=== PATIENT | female | born 1950 | race Caucasian/White ===

== ENCOUNTER 2019-12-06 07:16 | Outpatient (REF) | payer MEDICARE, OTHER, SELFPAY | END 2019-12-06 07:17 | disposition home or self-care (01) | LOC: HO.LAB 07:16 | PROVIDERS: Visit Provider Internal Medicine | DX: Z20.828 Contact with and (suspected) exposure to other viral communicable diseases (principal) | CPT/HCPCS: 87635 ==

== ENCOUNTER 2020-01-08 10:27 | Outpatient (REF) | payer MEDICARE, OTHER, SELFPAY | END 2020-01-08 10:28 | disposition home or self-care (01) | LOC: HO.LAB 10:27 | PROVIDERS: Visit Provider Internal Medicine | DX: Z20.828 Contact with and (suspected) exposure to other viral communicable diseases (principal) | CPT/HCPCS: C9803; U0003 ==

== ENCOUNTER 2020-11-19 13:45 | Outpatient (REF) | payer MEDICARE, OTHER, SELFPAY | END 2020-11-19 13:46 | disposition home or self-care (01) | LOC: HO.LAB 13:45 | PROVIDERS: PCP Internal Medicine; Visit Provider Internal Medicine | DX: Z20.822 Contact with and (suspected) exposure to COVID-19 (principal) | CPT/HCPCS: C9803; U0003; U0005 ==

== ENCOUNTER 2021-05-19 07:55 | Day surgery (SDC) | payer MEDICARE, OTHER, SELFPAY ==
[2021-05-13 11:00] VITALS: BMI 30.9
--- NOTE | 2021-05-15 12:06 | MHC.SHP ---
Pre-Procedural Eval Section A Date of Service: 05/15/21 The patient is an INPATIENT: No Changes since office visit: No Cold of Flu in the past 2 weeks, No New Medical Problems, No Changes in Medication and No Patient answered all questions The History & Physical has been completed within 30 days and I have reviewed it.: Yes Section B Chief Complaint: cataract right eye Allergies: Allergies Allergy/AdvReac Type Severity Reaction Status Date / Time melon [MELON] Allergy Severe THROAT Unverified 05/13/21 10:46 ITCHING peanut [PEANUT] Allergy Intermediate NASAL Unverified 05/13/21 10:46 CONGESTION Plan Diagnosis/Plan: Unchanged I have reviewed the history and physical and performed a pertinent physical examination on my patient. No changes have occurred unless specified.
--- NOTE | 2021-05-16 09:02 | HO.ANESPROP2 ---
Documented by User: Sary Alvarado NP 05/16/21 09:13 HPI - Anesthesia Eval Consult details Narrative: 71yo F for Right Cataract Multifocal with IOL Insertion PCP cleared No previous cataract on record PMFSH Past Medical History Medical History (Updated 05/13/21 @ 10:45 by Becki Medeiros RN) GERD (gastroesophageal reflux disease) Hiatal hernia History of depression HTN (hypertension) Hx of bronchitis Hypothyroidism Surgical History Surgical History (Updated 05/13/21 @ 10:45 by Becki Medeiros RN) H/O cervical discectomy History of arthroscopy of right knee Hx of colonoscopy Hx of endoscopy Hx of hysterectomy Hx of left cataract extraction Social History Social History Are you a primary home visit field care manager to a significant other at home: No Do you presently have visiting nurse or other home services: No Patient Tobacco Use Status: Never used Tobacco Use of substances other than those prescribed or required for medical reasons: No Have you been hit, kicked, punched, or otherwise hurt by someone within the past year? If so, by whom?: No Are you DNR?: No Advance Directives: No Advance Directives Information Provided: No Advance Directives on File: No Recently lost weight without trying: No Eating poorly because of decreased appetite: No Nutrition Risks: No Nutritional Risk Patient : No Meds Allergies Allergy/AdvReac Type Severity Reaction Status Date / Time melon [MELON] Allergy Severe THROAT Unverified 05/13/21 10:46 ITCHING peanut [PEANUT] Allergy Intermediate NASAL Unverified 05/13/21 10:46 CONGESTION Home Medications Medication Instructions Recorded Confirmed Last Taken Type albuterol sulfate 90 mcg/actuation 2 puff PO Q4H PRN 04/02/21 04/02/21 Unknown History aerosol inhaler citalopram 10 mg tablet 0.5 - 1 tab PO DAILY 04/02/21 04/02/21 Unknown History clotrimazole-betamethasone 1 appl TOPICAL NEEDED 04/02/21 Unknown History %-0.05 % topical cream levothyroxine 125 mcg tablet 1 tab PO QAM 04/02/21 04/02/21 Unknown History lithium carbonate 300 mg capsule 2 cap PO BEDTIME 04/02/21 04/02/21 Unknown History simethicone 180 mg capsule 1 cap PO TID 04/02/21 04/02/21 Unknown History (Anti-Gas Ultra Strength) carica papaya (Papaya Enzyme) 1 tab PO TID 05/13/21 05/13/21 Unknown History cetirizine 10 mg capsule 10 mg PO DAILY 05/13/21 05/13/21 Unknown History coenzyme Q10 100 mg capsule 200 mg PO DAILY 05/13/21 05/13/21 Unknown History (CoQ-10) flaxseed oil 1,000 mg capsule 1,000 mg PO DAILY 05/13/21 05/13/21 Unknown History turmeric 400 mg capsule mg PO 05/13/21 Unknown History valsartan 80 mg tablet 1 tab PO BID 05/13/21 05/13/21 Unknown History vitamin B complex 1 cap PO DAILY 05/13/21 05/13/21 Unknown History Exam Exam Date and Time: May 16, [id number] Height,Weight and Vital Signs: Height 5 ft 2 in Weight 76.657 kg Narrative Narrative: Labs and EKG at PCP WNL Assessment and Plan Assessment Anesthesia Assessment: Chart Reviewed Documented by User: Spike Echevarria MD 05/19/21 09:35 [facility] Past Medical History Medical History (Updated 05/13/21 @ 10:45 by Becki Medeiros RN) GERD (gastroesophageal reflux disease) Hiatal hernia History of depression HTN (hypertension) Hx of bronchitis Hypothyroidism Family History Family history of problems with anesthesia: No Surgical History Surgical History (Updated 05/13/21 @ 10:45 by Becki Medeiros RN) H/O cervical discectomy History of arthroscopy of right knee Hx of colonoscopy Hx of endoscopy Hx of hysterectomy Hx of left cataract extraction History of Problems with Anesthesia: No Social History Social History Are you a primary home visit field care manager to a significant other at home: No Do you presently have visiting nurse or other home services: No Patient Tobacco Use Status: Never used Tobacco Use of substances other than those prescribed or required for medical reasons: No Have you been hit, kicked, punched, or otherwise hurt by someone within the past year? If so, by whom?: No Are you DNR?: No Advance Directives: No Advance Directives Information Provided: No Advance Directives on File: No Recently lost weight without trying: No Eating poorly because of decreased appetite: No Nutrition Risks: No Nutritional Risk Patient : No Meds Allergies Allergy/AdvReac Type Severity Reaction Status Date / Time melon [MELON] Allergy Severe THROAT Unverified 05/13/21 10:46 ITCHING peanut [PEANUT] Allergy Intermediate NASAL Unverified 05/13/21 10:46 CONGESTION Home Medications Medication Instructions Recorded Confirmed Last Taken Type albuterol sulfate 90 mcg/actuation 2 puff PO Q4H PRN 04/02/21 04/02/21 Unknown History aerosol inhaler citalopram 10 mg tablet 0.5 - 1 tab PO DAILY 04/02/21 04/02/21 Unknown History clotrimazole-betamethasone 1 appl TOPICAL NEEDED 04/02/21 Unknown History %-0.05 % topical cream levothyroxine 125 mcg tablet 1 tab PO QAM 04/02/21 04/02/21 Unknown History lithium carbonate 300 mg capsule 2 cap PO BEDTIME 04/02/21 04/02/21 Unknown History simethicone 180 mg capsule 1 cap PO TID 04/02/21 04/02/21 Unknown History (Anti-Gas Ultra Strength) carica papaya (Papaya Enzyme) 1 tab PO TID 05/13/21 05/13/21 Unknown History cetirizine 10 mg capsule 10 mg PO DAILY 05/13/21 05/13/21 Unknown History coenzyme Q10 100 mg capsule 200 mg PO DAILY 05/13/21 05/13/21 Unknown History (CoQ-10) flaxseed oil 1,000 mg capsule 1,000 mg PO DAILY 05/13/21 05/13/21 Unknown History turmeric 400 mg capsule mg PO 05/13/21 Unknown History valsartan 80 mg tablet 1 tab PO BID 05/13/21 05/13/21 Unknown History vitamin B complex 1 cap PO DAILY 05/13/21 05/13/21 Unknown History Exam Airway Mallampati Class: II TM Dist: >3cm Neck ROM: Full Loose/Missing/Broken Teeth: No Heart: rrr+s1s2 Lungs: cta b/l Assessment and Plan Assessment Anesthesia Assessment: Anesthesia Plan Discussed Final Anesthetic Review Family History of Problems with Anesthesia: No History of Problems with Anesthesia: No NPO: Yes ASA Class: III Final Preanesthetic Review: No Changes in Pt Med Stat, Meds/Allgs Chart Reviewed, Consent Obtained/Reviewed and Anes Risks/Benef Reviewed Patient Risk: Intermediate Procedure Risk: Low Assessment/Block/Sedation in SS: Assess/Block/Sedation-SS Anesthetic Plan Anesthetic Plan: MAC: and Agree w/ Assess. and Plan Disposition: Standard PACU
[2021-05-19 09:26] VITALS: BP 128/66; PULSE 65; RESP 16; TEMP 36.4; O2SAT 95
[2021-05-19] MEDS: Tetracaine HCl/PF 0.5% Oph Sol 4 ML DROPS 1 DROP EYE-RIGHT (09:41)
[2021-05-19] MEDS: Tropicamide 1 % Ophth Sol 3 ML BTL 1 DROP EYE-RIGHT ×3 (09:41→09:49)
[2021-05-19] MEDS: Lactated Ringers 500 ML 50 ML IV (09:41)
[2021-05-19] MEDS: Phenylephrine HCL 2.5% Oph SoL 2 ML BOTTLE 1 DROP EYE-RIGHT ×3 (09:44→09:52)
--- NOTE | 2021-05-19 10:29 | HO.PNOPHT ---
Ophthalmology Procedure Procedure Date of Service: 05/19/21 Ophthalmology Viscoelastic: Healserge Duet Dual Pack Pro Ophthalmology Lenses: TECNIS [id number] (21) Procedure Notes: PREOPERATIVE DIAGNOSIS: Decreased visual acuity right eye secondary to cataract POSTOPERATIVE DIAGNOSIS: Same PROCEDURE: Right cataract extraction with toric multifocal intraocular lens insertion axis 88 SURGEON: Willy Avelar M.D. ANESTHESIA: Topical/MAC ESTIMATED BLOOD LOSS: None COMPLICATIONS: None After obtaining informed consent, the patient was brought to the operating room suite and placed in the supine position. After adequate sedation per anesthesia, topical drops of Tetracaine were given to the right eye. The eye was then prepped and draped in the usual sterile fashion. The operating room microscope was then positioned over the operative eye and a lid speculum placed. A paracentesis was created. Viscoelastic was then instilled into the anterior chamber. A three plane incision was then created temporally, utilizing a 2.85 mm keratome. Capsulotomy forceps were then utilized to create a circular tear capsulotomy. Hydrodissection and hydrodelineation were carried out until adequate mobilization of the nucleus occurred. Phacoemulsification was then utilized to remove the dense central nucleus followed by removal of the cortical material utilizing the automated aspiration irrigation unit. Viscoelastic was instilled into the posterior capsular bag followed by placement of a toric multifocal posterior chamber intraocular lens axis 88 without difficulty. The residual Viscoelastic was then removed utilizing the automated IA machine. The wound was checked and found to be watertight. The patient tolerated the procedure well and the lid speculum was removed. Intracameral injection of Vigamox 0.1 mL followed by a subtenon injection of Kenalog-40 0.2 mL were administered. The patient will be seen in the a.m.
[2021-05-19 10:53] VITALS: BP 141/76; PULSE 64; RESP 18; TEMP 36.4; O2SAT 96
== END 2021-05-19 11:06 | disposition home or self-care (01) ==
PROVIDERS: PCP Internal Medicine; Visit Provider Ophthalmology
PROC: (CPT 66984; principal; 2021-05-19 10:40)
DX: H25.11 Age-related nuclear cataract, right eye (principal); I10 Essential (primary) hypertension; E03.9 Hypothyroidism, unspecified; J45.20 Mild intermittent asthma, uncomplicated; Z79.899 Other long term (current) drug therapy
CPT/HCPCS: 66984; J2250; J3010; J3300; V2788

== ENCOUNTER 2021-09-19 13:20 | Outpatient (REF) | payer MEDICARE, OTHER, SELFPAY ==
--- NOTE | ~2021-09-19 | MR_ITS ---
EXAMINATION: MR BRAIN WITHOUT CONTRAST CLINICAL INFORMATION: Cerebral infarction. Aphasia. COMPARISON: None available. TECHNIQUE: Multiplanar, multisequence imaging of the brain was performed without intravenous contrast. FINDINGS: There is no intracranial hemorrhage, extra-axial collection, mass effect, or territorial infarction. There is chronic infarct within the left insula. Chronic lacunar infarcts are seen within the bilateral basal ganglia and bilateral thalami. Mild patchy T2/FLAIR hyperintensity seen within the cerebral white matter, most typical of chronic microangiopathy. The ventricles are normal in size without hydrocephalus. The major arterial flow voids are preserved at the skull base. There are bilateral lens replacements. A small amount of mastoid fluid is seen on the right. MR/MR head/brain wo con IMPRESSION: No acute intracranial abnormality. No mass. Chronic infarct in the left insula. Chronic lacunar infarcts in the bilateral basal ganglia and thalami with background changes of chronic microangiopathy also demonstrated.
== END 2021-09-19 13:21 | disposition home or self-care (01) ==
LOC: HO.MRI 13:20
PROVIDERS: Visit Provider Psychiatry & Neurology Neurology
DX: I63.9 Cerebral infarction, unspecified (principal); R74.01 Elevation of levels of liver transaminase levels
CPT/HCPCS: 70551

== ENCOUNTER 2021-11-24 09:39 | Day surgery (SDC) | payer MEDICARE, OTHER, SELFPAY ==
[2021-11-18 13:53] VITALS: BMI 27.8
[2021-11-18 14:04] VITALS: BMI 27.8
--- NOTE | 2021-11-20 15:32 | MHC.SHP ---
Pre-Procedural Eval Section A Date of Service: 11/20/21 The patient is an INPATIENT: No Changes since office visit: No Cold of Flu in the past 2 weeks, No New Medical Problems, No Changes in Medication and No Patient answered all questions The History & Physical has been completed within 30 days and I have reviewed it.: Yes Section B Chief Complaint: Other specified complication of other internal pro Allergies: Allergies Allergy/AdvReac Type Severity Reaction Status Date / Time melon [MELON] Allergy Severe THROAT Verified 05/19/21 09:41 ITCHING peanut [PEANUT] Allergy Intermediate NASAL Verified 05/19/21 09:41 CONGESTION Plan Diagnosis/Plan: Unchanged I have reviewed the history and physical and performed a pertinent physical examination on my patient. No changes have occurred unless specified.
--- NOTE | 2021-11-21 08:57 | P.CONAN_ITS ---
Documented by User: Sary Alvarado NP 11/21/21 09:00 HPI - Anesthesia Eval Consult details Narrative: 71yo F for Right Cataract Extraction IOL Insertion, reposition on lens PCP cleared Original done 05/2021 with MAC: Fent 50, Midaz 1 PMFSH Past Medical History Medical History Bipolar disorder CVA (cerebral vascular accident) GERD (gastroesophageal reflux disease) Hiatal hernia History of depression HTN (hypertension) Hx of bronchitis Hypothyroidism Family History Family history of problems with anesthesia: No Surgical History Surgical History H/O cervical discectomy History of arthroscopy of right knee History of loop recorder Hx of colonoscopy Hx of endoscopy Hx of hysterectomy Hx of left cataract extraction Hx of right cataract extraction History of Problems with Anesthesia: No Social History Social History Are you a primary health care facility administrator to a significant other at home: No Do you presently have visiting nurse or other home services: No Patient Tobacco Use Status: Never used Tobacco Use of substances other than those prescribed or required for medical reasons: No Are you DNR?: No Advance Directives: No Advance Directives Information Provided: Yes (brochure mailed) Advance Directives on File: No Recently lost weight without trying: No Eating poorly because of decreased appetite: No Nutrition Risks: No Nutritional Risk Meds Allergies Allergy/AdvReac Type Severity Reaction Status Date / Time melon [MELON] Allergy Severe THROAT Verified 11/24/21 11:26 ITCHING peanut [PEANUT] Allergy Intermediate NASAL Verified 11/24/21 11:26 CONGESTION Home Medications Medication Instructions Recorded Confirmed Last Taken Type albuterol sulfate 90 mcg/actuation 2 puff PO Q4H PRN wheezing 04/02/21 04/02/21 Unknown History aerosol inhaler citalopram 10 mg tablet 0.5 - 1 tab PO BEDTIME 04/02/21 11/18/21 Unknown History clotrimazole-betamethasone 1 appl topical NEEDED 04/02/21 Unknown History %-0.05 % topical cream lithium carbonate 300 mg capsule 150 mg PO BEDTIME 04/02/21 11/18/21 Unknown History simethicone 180 mg capsule 1 cap PO TID 04/02/21 11/18/21 Unknown History (Anti-Gas Ultra Strength) carica papaya (Papaya Enzyme 1 tab PO TID 05/13/21 05/13/21 Unknown History tablet) cetirizine 10 mg capsule 10 mg PO DAILY 05/13/21 11/18/21 Unknown History coenzyme Q10 100 mg capsule 200 mg PO DAILY 05/13/21 11/18/21 Unknown History (CoQ-10) flaxseed oil 1,000 mg capsule 1,000 mg PO DAILY 05/13/21 11/18/21 Unknown History turmeric 400 mg capsule 400 mg PO DAILY 05/13/21 11/18/21 Unknown History valsartan 80 mg tablet 1 tab PO BID 05/13/21 11/18/21 Unknown History vitamin B complex 1 cap PO DAILY 05/13/21 11/18/21 Unknown History aspirin 81 mg tablet,delayed 1 tab PO DAILY 11/18/21 11/18/21 Unknown History release atorvastatin 80 mg tablet 1 tab PO DAILY 11/18/21 11/18/21 Unknown History levothyroxine 100 mcg tablet 1 tab PO QAM 11/18/21 11/18/21 11/24/21 06:30 History Exam Exam Date and Time: November 21, 2021 0857 Height,Weight and Vital Signs: Height 5 ft 2 in Weight 68.946 kg Assessment and Plan Assessment Anesthesia Assessment: Chart Reviewed Final Anesthetic Review Family History of Problems with Anesthesia: No History of Problems with Anesthesia: No Documented by User: Spike Echevarria MD 11/24/21 12:02 [facility] Past Medical History Medical History Bipolar disorder CVA (cerebral vascular accident) GERD (gastroesophageal reflux disease) Hiatal hernia History of depression HTN (hypertension) Hx of bronchitis Hypothyroidism Surgical History Surgical History H/O cervical discectomy History of arthroscopy of right knee History of loop recorder Hx of colonoscopy Hx of endoscopy Hx of hysterectomy Hx of left cataract extraction Hx of right cataract extraction Social History Social History Are you a primary health care facility administrator to a significant other at home: No Do you presently have visiting nurse or other home services: No Patient Tobacco Use Status: Never used Tobacco Use of substances other than those prescribed or required for medical reasons: No Are you DNR?: No Advance Directives: No Advance Directives Information Provided: Yes (brochure mailed) Advance Directives on File: No Recently lost weight without trying: No Eating poorly because of decreased appetite: No Nutrition Risks: No Nutritional Risk Meds Allergies Allergy/AdvReac Type Severity Reaction Status Date / Time melon [MELON] Allergy Severe THROAT Verified 11/24/21 11:26 ITCHING peanut [PEANUT] Allergy Intermediate NASAL Verified 11/24/21 11:26 CONGESTION Home Medications Medication Instructions Recorded Confirmed Last Taken Type albuterol sulfate 90 mcg/actuation 2 puff PO Q4H PRN wheezing 04/02/21 04/02/21 Unknown History aerosol inhaler citalopram 10 mg tablet 0.5 - 1 tab PO BEDTIME 04/02/21 11/18/21 Unknown History clotrimazole-betamethasone 1 appl topical NEEDED 04/02/21 Unknown History %-0.05 % topical cream lithium carbonate 300 mg capsule 150 mg PO BEDTIME 04/02/21 11/18/21 Unknown History simethicone 180 mg capsule 1 cap PO TID 04/02/21 11/18/21 Unknown History (Anti-Gas Ultra Strength) carica papaya (Papaya Enzyme 1 tab PO TID 05/13/21 05/13/21 Unknown History tablet) cetirizine 10 mg capsule 10 mg PO DAILY 05/13/21 11/18/21 Unknown History coenzyme Q10 100 mg capsule 200 mg PO DAILY 05/13/21 11/18/21 Unknown History (CoQ-10) flaxseed oil 1,000 mg capsule 1,000 mg PO DAILY 05/13/21 11/18/21 Unknown History turmeric 400 mg capsule 400 mg PO DAILY 05/13/21 11/18/21 Unknown History valsartan 80 mg tablet 1 tab PO BID 05/13/21 11/18/21 Unknown History vitamin B complex 1 cap PO DAILY 05/13/21 11/18/21 Unknown History aspirin 81 mg tablet,delayed 1 tab PO DAILY 11/18/21 11/18/21 Unknown History release atorvastatin 80 mg tablet 1 tab PO DAILY 11/18/21 11/18/21 Unknown History levothyroxine 100 mcg tablet 1 tab PO QAM 11/18/21 11/18/21 11/24/21 06:30 History Exam Airway Mallampati Class: II TM Dist: >3cm Neck ROM: Full Loose/Missing/Broken Teeth: No Heart: rrr+s1s2 Lungs: cta b/l Assessment and Plan Assessment Anesthesia Assessment: Anesthesia Plan Discussed Final Anesthetic Review NPO: Yes ASA Class: III Final Preanesthetic Review: No Changes in Pt Med Stat, Meds/Allgs Chart Reviewed, Consent Obtained/Reviewed and Anes Risks/Benef Reviewed Patient Risk: Intermediate Procedure Risk: Low Assessment/Block/Sedation in SS: Assess/Block/Sedation-SS Anesthetic Plan Anesthetic Plan: MAC: and Agree w/ Assess. and Plan Disposition: Standard PACU
[2021-11-24 11:42] VITALS: BP 168/76; PULSE 59; RESP 16; TEMP 36.2; O2SAT 98
[2021-11-24] MEDS: Tetracaine HCl/PF 0.5% Oph Sol 4 ML DROPS 1 DROP EYE-LEFT (11:47)
[2021-11-24] MEDS: Cyclopentolate 1 % Ophth Sol 2 ML DRPBTL 1 DROP EYE-LEFT ×3 (11:50→12:05)
[2021-11-24] MEDS: Tropicamide 1 % Ophth Sol 3 ML BTL 1 DROP EYE-LEFT ×3 (11:52→12:06)
[2021-11-24] MEDS: Ketorolac Tromethamine 0.5% Op 5 ML DROPS 1 DROP EYE-LEFT ×3 (11:53→12:07)
[2021-11-24] MEDS: Phenylephrine HCL 2.5% Oph SoL 2 ML BOTTLE 1 DROP EYE-LEFT ×3 (11:56→12:08)
[2021-11-24] MEDS: Lactated Ringers 500 ML 50 ML IV (12:06)
[2021-11-24 14:13] VITALS: BP 138/66; PULSE 69; RESP 16; TEMP 36.2; O2SAT 97
--- NOTE | 2021-11-25 00:37 | OP_ITS ---
SURGEON: Willy Avelar MD PREOPERATIVE DIAGNOSIS: POSTOPERATIVE DIAGNOSIS: Malpositioning of the posterior chamber intraocular lens of the right eye. PROCEDURE PERFORMED: Repositioning of the posterior chamber intraocular lens. ESTIMATED BLOOD LOSS: COMPLICATIONS: ANESTHESIA: Local with MAC. ASSISTANTS: SPECIMENS: INDICATIONS FOR SURGERY: Malpositioning of the posterior chamber intraocular lens of the right eye. DESCRIPTION OF PROCEDURE: After obtaining informed consent, the patient was brought to the operating room suite and placed in the supine position. After adequate sedation, the right eye was prepped and draped in the usual sterile fashion. A lid speculum was placed in the right eye followed by positioning of the microscope over the right eye. A 15-degree Supersharp blade was utilized to create a paracentesis. Kenalog injection of 0.15 mL was given sub-Tenon to the right eye. A keratome was then used to create a clear corneal incision. Viscoelastic was instilled into the anterior chamber. Viscoelastic was also instilled into the posterior capsular bag paying attention to the haptics until they rotated freely. Once the haptics rotated freely, the IOL was repositioned at 88 degrees. The viscoelastic was removed and the patient tolerated the procedure well. Topical drop of antibiotic was given and the lid speculum was removed and the patient will be seen in followup tomorrow. MD LINDA Asher/MODL / [id number]
== END 2021-11-24 14:21 | disposition home or self-care (01) ==
PROVIDERS: Visit Provider Ophthalmology
PROC: (CPT 66825; principal; 2021-11-24 12:40)
DX: T85.22XA Displacement of intraocular lens, initial encounter (principal); H53.8 Other visual disturbances; V00-Y99 External causes of morbidity; Z83.511 Family history of glaucoma; Z96.1 Presence of intraocular lens; E03.9 Hypothyroidism, unspecified; I10 Essential (primary) hypertension; F32.A Depression, unspecified; I69.398 Other sequelae of cerebral infarction; R20.2 Paresthesia of skin; Z87.891 Personal history of nicotine dependence; Z79.899 Other long term (current) drug therapy
CPT/HCPCS: 66825; J2250; J3300

== ENCOUNTER 2022-07-01 10:13 | Emergency (ER) | payer MEDICARE, OTHER, SELFPAY ==
--- NOTE | ~2022-07-01 | CT_ITS ---
EXAMINATION: CT HEAD WITHOUT CONTRAST CLINICAL INFORMATION: Vision changes COMPARISON: MRI brain 09/19/2021. TECHNIQUE: Contiguous axial imaging was performed from the skull base to vertex without intravenous administration of contrast. This CT examination was performed using dose optimization techniques as appropriate, variously including the following: *Automated exposure control *Adjustment of mA and/or kV according to patient size (this includes techniques or standardized protocols for targeted exams where dose is matched to indication/reason for exam; i.e. extremities or head) *Use of iterative reconstruction technique DLP: 590 mGy-cm FINDINGS: There is no acute intra-axial, extra-axial bleed, masses or midline shift. There is no acute infarction in evolution. 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 There is no edema. The lateral ventricles are symmetrical but mildly enlarged. The cruz to white matter differentiation is preserved. Bone windows reveal no calvarial abnormality. There is no scalp soft tissue abnormality. Bilateral paranasal sinuses and mastoid air cells are well-aerated. CT/CT head/brain wo IV con IMPRESSION: 1. No acute intracranial process seen. 2. 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 3. Mild cerebral volume loss.
[2022-07-01 10:22] VITALS: BP 147/76; PULSE 71; RESP 18; TEMP 36.4; O2SAT 96; BMI 27.7
[2022-07-01 10:27] VITALS: BP 147/76; PULSE 71; RESP 18; TEMP 36.4; O2SAT 96
--- NOTE | 2022-07-01 10:36 | PC.NURSE ---
Alert and oriented. Drove herself to Er from home after she experienced 3 beams of light behind her eye yesterday morning (unsure which eye) states it may have last for a few minutes but is unsure. States she had x1 episode of urinary incontinence yesterday. is a diabetic and has experienced visual changes over the last tear. Traveled to [place] about a month ago and had a fall while there. since fall she has had left sided lower extremity pain and had fluid removed and a cortisone shot in her left knee yesterday. had a stroke in May 30 2021 and had some left sided deficits after tge stroke. No chest pain or sob, perrla, hand grasps strong and equal. Able to lift both legs. Reports no headache or current visual disturbances. VSS. NSR on monitor.
--- NOTE | 2022-07-01 10:36 | ED.EYEPROB ---
HPI - Eye Problem General Chief complaint: Eye Problems Stated complaint: Stroke Like Symptoms Time Seen by Provider: 07/01/22 10:26 Source: patient Mode of arrival: ambulatory Limitations: no limitations History of Present Illness HPI Narrative: 72 y/o female with history of CVA, HTN, hypothyroidism, history of bilateral cataract surgeries in the past who presents ot the ER for evaluation of recurrent transient flashes of light in her eye over the last week, last episode was yesterday morning. She states the flashes last seconds and it looks like a sheet with holes in it and a light shining through. No associated eye pain, headache, weakness, numbness, tingling. She states it has happened a few times this week, she cannot recall which eye it has occurred in. She has no current symptoms. MD chief complaint: vision change Onset (ago): week(s) Onset description: sudden Duration: intermittent Eye Symptoms: other (flashing lights) Place: home Mechanism: none Severity: moderate Treatments Prior to Arrival: none Related Data Patient tetanus UTD: Yes Home Medications Medication Instructions Recorded Confirmed albuterol sulfate 90 mcg/actuation 2 puff PO Q4H PRN wheezing 04/02/21 04/02/21 aerosol inhaler citalopram 10 mg tablet 0.5 - 1 tab PO BEDTIME 04/02/21 11/18/21 clotrimazole-betamethasone 1 appl topical NEEDED 04/02/21 %-0.05 % topical cream lithium carbonate 300 mg capsule 150 mg PO BEDTIME 04/02/21 11/18/21 simethicone 180 mg capsule 1 cap PO TID 04/02/21 11/18/21 (Anti-Gas Ultra Strength) carica papaya (Papaya Enzyme 1 tab PO TID 05/13/21 05/13/21 tablet) cetirizine 10 mg capsule 10 mg PO DAILY 05/13/21 11/18/21 coenzyme Q10 100 mg capsule 200 mg PO DAILY 05/13/21 11/18/21 (CoQ-10) flaxseed oil 1,000 mg capsule 1,000 mg PO DAILY 05/13/21 11/18/21 turmeric 400 mg capsule 400 mg PO DAILY 05/13/21 11/18/21 valsartan 80 mg tablet 1 tab PO BID 05/13/21 11/18/21 vitamin B complex 1 cap PO DAILY 05/13/21 11/18/21 aspirin 81 mg tablet,delayed 1 tab PO DAILY 11/18/21 11/18/21 release atorvastatin 80 mg tablet 1 tab PO DAILY 11/18/21 11/18/21 levothyroxine 100 mcg tablet 1 tab PO QAM 11/18/21 11/18/21 Allergies Allergy/AdvReac Type Severity Reaction Status Date / Time melon [MELON] Allergy Severe THROAT Verified 11/24/21 11:26 ITCHING peanut [PEANUT] Allergy Intermediate NASAL Verified 11/24/21 11:26 CONGESTION Review of Systems Review of Systems: Yes all other systems are reviewed and are negative PMFSH Past Medical History Medical History Bipolar disorder CVA (cerebral vascular accident) GERD (gastroesophageal reflux disease) Hiatal hernia History of depression HTN (hypertension) Hx of bronchitis Hypothyroidism Surgical History H/O cervical discectomy History of arthroscopy of right knee History of loop recorder Hx of colonoscopy Hx of endoscopy Hx of hysterectomy Hx of left cataract extraction Hx of right cataract extraction Social History Social History Are you a primary toddler caregiver to a significant other at home: No Do you presently have visiting nurse or other home services: No Alcohol intake: current Alcohol intake frequency: a few times a month Patient Tobacco Use Status: Never used Tobacco Smoked in Last 30 Days: No Substance Use Type Other:: SUPPLEMENTS, VITAMINS Advance Directives: No Advance Directives Information Provided: Yes Physical Exam Vital Signs: Vital Signs: Last Vital Signs Temp 97.6 F 07/01/22 10:27 Pulse 71 07/01/22 10:27 Resp 18 07/01/22 10:27 BP 147/76 H 07/01/22 10:27 Pulse Ox 96 07/01/22 10:27 O2 Del Method Room Air 07/01/22 10:27 BMI result Body Mass Index 27.7 Appearance: Alert. Oriented X3. No acute distress. Head: normocephalic, atraumatic. Eyes: Pupils equal, round and reactive to light. EOMI, no nystagmus. no injection, no discharge. IOP 15 bilaterally ENT: Pharynx normal. No tonsillar swelling or exudate. Neck: Normal inspection. Neck supple. CVS: Normal heart rate and rhythm. Pulses normal. Respiratory: No respiratory distress. Breath sounds normal. Abdomen: Soft and nontender. +BS x4 Skin: Skin warm and dry. Normal skin color. Normal skin turgor. No rashes. Extremities: No lower extremity edema. No joint swelling. Neuro/psych: Oriented X 3. No motor deficit. No sensory deficit. CN II-XII intact. Normal speech and cognition. Steady gait Course Reevaluation(s) Reevaluation #1: No vision issues while in the ER. Patient comfortably reading her book. Intra-ocular pressures are 15 bilaterally. Time: 11:41 Medications Administered Discontinued Medications Generic Name Dose Route Start Last Admin Trade Name Freq PRN Reason Stop Dose Admin Tetracaine HCl 1 drop 07/01/22 10:36 07/01/22 11:28 Tetracaine Hcl/Pf 0.5% Oph Jer[place] 4 Ml Drops EYE-BOTH 07/01/22 10:37 1 drop ONCE ONE Administration Medical Decision Making Medical Decision Making [facility] Narrative: 72 yo female with history of stroke, history of bilateral cataract surgeries in the past presenting with vision changes described as flashing lights that are transient and not associated with any other symptoms. IOP 15. CT head showing old stroke, Neurologically intact. No symptoms while here, reading her book. She is on aspirin. Case d/w Dr Avelar who is recommending follow up in the office. results and plan d/w patient - stablke for d/c home. Differential Diagnosis Differential Diagnoses: The differential diagnosis associated with the presentation includes lens displacement, optic nerve damage, optic neuritis, detached retina, posterior vitrious detachment, migraine headache Admission/Observation Consideration of admission/observation: Escalation of care including admission/observation considered Consult Healthcare Provider Management of the patient was discussed with: [place] Operator Dr. Avelar Lab Data [facility] Lab Attestation statement: I reviewed the patient's lab results. 07/01/22 11:24 07/01/22 11:24 Labs: Lab Results 07/01/22 07/01/22 07/01/22 Range/Units 11:24 11:57 11:57 WBC 13.2 H (4.8-10.8) X10*3/uL RBC 4.80 (4.20-5.50) X10*6/uL Hgb 14.2 (12.0-16.0) g/dl Hct 42.7 (37.0-47.0) % MCV 89.0 (80.0-98.0) fL MCH 29.6 (27.0-33.0) pg MCHC 33.3 (31.0-35.0) g/dl RDW 14.6 (11.0-16.0) % Plt Count 374 (160-400) X10*3/uL MPV 10.1 (9.4-12.3) fL Immature Gran % (Auto) 0.5 H (0.0-0.4) % Neut % (Auto) 87.2 H (45-73) % Lymph % (Auto) 7.5 L (20-40) % [place] % (Auto) 4.6 (2-11) % Eos % (Auto) 0.0 (0-4) % Baso % (Auto) 0.2 (0-2) % Lymph # (Auto) 1.0 L (1.2-4.9) X10*3/uL [place] # (Auto) 0.6 (0.1-1.2) X10*3/uL Eos # (Auto) 0.0 (0.0-0.4) X10*3/uL Baso # (Auto) 0.0 (0.0-0.2) X10*3/uL Abs Immat Gran (auto) 0.06 H (0.00-0.03) X10*3/uL Absolute Neuts (auto) 11.5 H (2.0-8.3) x10*3/uL Absolute Nucleated RBC 0.000 (0.0-0.012) X10*3/uL Nucleated RBC % (auto) 0.0 (0.0-0.2) /100WBC PT 10.4 (10.0-13.1) SEC INR 0.9 (0.9-1.1) APTT 29.6 (26.0-36.4) SEC Sodium 145 (135-145) mmol/L Potassium 4.8 (3.3-5.1) mmol/L Chloride 109 H (96-108) mmol/L Carbon Dioxide 28 (22-29) mmol/L Anion Gap 13 (12-20) BUN 21 H (9-16) mg/dL Creatinine 0.72 (0.5-1.4) mg/dL Estim Creat Clear Calc 63.2 Estimated GFR > 60 Random Glucose 108 (60-115) mg/dL Calcium 10.2 (8.4-10.2) mg/dL Magnesium 2.4 (1.6-2.6) mg/dL Total Bilirubin 0.5 (0.0-1.0) mg/dL Direct Bilirubin 0.1 (0.0-0.5) mg/dL AST 19 (5-31) U/L ALT 23 (0-31) U/L Alkaline Phosphatase 66 (39-117) U/L Total Protein 7.0 (6.5-8.0) g/dL Albumin 4.3 (3.5-5.0) g/dL Independent Interpretation I performed an independent interpretation of an: CT Scan Interpretation: no acute bleed or stroke Radiology Impression Discussion of test interpretation with radiology: I have reviewed the radiologist's reading. Radiologist Impression: EXAMINATION: CT HEAD WITHOUT CONTRAST CLINICAL INFORMATION: Vision changes? COMPARISON: MRI brain 09/19/2021. TECHNIQUE: Contiguous axial imaging was performed from the skull base to vertex without intravenous administration of contrast. This CT examination was performed using dose optimization techniques as appropriate, variously including the following: *Automated exposure control *Adjustment of mA and/or kV according to patient size (this includes techniques or standardized protocols for targeted exams where dose is matched to indication/reason for exam; i.e. extremities or head) *Use of iterative reconstruction technique DLP: 590 mGy-cm FINDINGS: There is no acute intra-axial, extra-axial bleed, masses or midline shift. There is no acute infarction in evolution. 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 There is no edema. The lateral ventricles are symmetrical but mildly enlarged. The cruz to white matter differentiation is preserved. Bone windows reveal no calvarial abnormality. There is no scalp soft tissue abnormality. Bilateral paranasal sinuses and mastoid air cells are well-aerated. ? CT/CT head/brain wo IV con IMPRESSION: 1.? No acute intracranial process seen. 2.? 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 3.? Mild cerebral volume loss. External Record Review External record reviewed: Office record and Outpatient record Chronic Conditions Patient?s care impacted by: Hypertension Critical Care Time Critical Care Time Critical Care Time: No Discharge Plan Discharge Clinical Impression: Flashing lights Patient Disposition: Home, Self-Care Instructions: Blurred Vision (ED) Additional Instructions: your CT scan did not show any acute changes follow up with Dr. Avelar If you develop new or worsening symptoms call 911 or come back to the ER for further evaluation. Prescriptions: No Action simethicone [Anti-Gas Ultra Strength] 180 mg capsule 1 cap PO TID citalopram 10 mg tablet 0.5 - 1 tab PO BEDTIME lithium carbonate 300 mg capsule 150 mg PO BEDTIME clotrimazole-betamethasone 1-0.05 % cream topical NEEDED albuterol sulfate 90 mcg/actuation HFA aerosol inhaler 2 puff PO Q4H PRN (Reason: wheezing) carica papaya [Papaya Enzyme] Tablet 1 tab PO TID Rx Instructions: administer with meals valsartan 80 mg tablet 1 tab PO BID flaxseed oil 1,000 mg Capsule 1,000 mg PO DAILY Rx Instructions: administer with a meal vitamin B complex [B Complex] Capsule 1 cap PO DAILY coenzyme Q10 [CoQ-10] 100 mg Capsule 200 mg PO DAILY cetirizine 10 mg Capsule 10 mg PO DAILY turmeric 400 mg Capsule 400 mg PO DAILY atorvastatin 80 mg tablet 1 tab PO DAILY aspirin 81 mg tablet,delayed release (DR/EC) 1 tab PO DAILY levothyroxine 100 mcg tablet 1 tab PO QAM Referrals: Willy Avelar [Physician] - Interventions: ED Discharge Assessment Last Done: 07/01/22 14:16 Discharge Date/Time: 07/01/22 14:16
[2022-07-01] MEDS: Tetracaine HCl/PF 0.5% Oph Sol 4 ML DROPS 1 DROP EYE-BOTH (11:28)
[2022-07-01 11:38] LABS: MANUAL DIFF FLAG NO
[2022-07-01 11:42] LABS: Basophils Percent Auto 0.2 % (0-2); Hematocrit 42.7 % (37.0-47.0); Hemoglobin 14.2 g/dl (12.0-16.0); Imm Gran Abs Auto 0.06 X10*3/uL (0.00-0.03); Imm Gran Pct Auto 0.5 % (0.0-0.4); Lymphocytes Percent Auto 7.5 % (20-40); Mean Corpuscular HGB Conc 33.3 g/dl (31.0-35.0); Mean Corpuscular Hemoglobin 29.6 pg (27.0-33.0); Mean Platelet Volume 10.1 fL (9.4-12.3); Monocytes Absolute Auto 0.6 X10*3/uL (0.1-1.2); Monocytes Percent Auto 4.6 % (2-11); Neutrophils Absolute Auto 11.5 x10*3/uL (2.0-8.3); Neutrophils Percent Auto 87.2 % (45-73); Platelet Count 374 X10*3/uL (160-400); Red Cell Distribution Width 14.6 % (11.0-16.0); White Blood Count 13.2 X10*3/uL (4.8-10.8)
[2022-07-01 12:07] LABS: INTERNATIONAL NORM RATIO 0.9 (0.9-1.1); Prothrombin Time 10.4 SEC (10.0-13.1)
[2022-07-01 12:10] LABS: Partial Thromboplastin Time 29.6 SEC (26.0-36.4)
[2022-07-01 12:19] LABS: Alanine Aminotransferase 23 U/L (0-31); Albumin Level 4.3 g/dL (3.5-5.0); Alkaline Phosphatase 66 U/L (39-117); Anion Gap 13 (12-20); Aspartate Amino Transferase 19 U/L (5-31); Bilirubin Direct 0.1 mg/dL (0.0-0.5); Bilirubin Total 0.5 mg/dL (0.0-1.0); Blood Urea Nitrogen 21 mg/dL (9-16); Calcium 10.2 mg/dL (8.4-10.2); Carbon Dioxide 28 mmol/L (22-29); Chloride 109 mmol/L (96-108); Creatinine Clr Calc Pharmacy 63.2; Estimated Glomerular Filt Rate > 60; Glucose Random 108 mg/dL (60-115); Magnesium 2.4 mg/dL (1.6-2.6); Potassium 4.8 mmol/L (3.3-5.1); Sodium 145 mmol/L (135-145)
--- NOTE | 2022-07-01 14:17 | PC.NURSE ---
Alert and oriented. Reviewed discharge instruction and patient verbalized understanding to follow up with eye
== END 2022-07-01 14:16 | disposition home or self-care (01) ==
PROVIDERS: Physician Assistant; Emergency Provider Emergency Medicine Emergency Medical Services; PCP Internal Medicine
DX: H53.8 Other visual disturbances (principal); I10 Essential (primary) hypertension; Z86.73 Personal history of transient ischemic attack (TIA), and cerebral infarction without residual deficits; Z79.899 Other long term (current) drug therapy; E03.9 Hypothyroidism, unspecified
CPT/HCPCS: 36415; 70450; 80048; 80076; 83735; 85025; 85610; 85730; 99284

== ENCOUNTER 2022-09-19 17:47 | Inpatient (IN) | payer MEDICARE, OTHER, SELFPAY ==
[2022-09-19] VITALS (15 sets, daily range): BP systolic 121–154; BP diastolic 67–85; PULSE 81–91; RESP 12–22; TEMP 36.5–37.6; O2SAT 93–98; BMI 25.8; BMI 25.6
--- NOTE | ~2022-09-19 | CT_ITS ---
EXAMINATION: CT HEAD WITHOUT CONTRAST CLINICAL INFORMATION: Left-sided weakness. COMPARISON: CT head 07/01/2022. TECHNIQUE: Contiguous axial imaging was performed from the skull base to vertex without intravenous administration of contrast. This CT examination was performed using dose optimization techniques as appropriate, variously including the following: *Automated exposure control *Adjustment of mA and/or kV according to patient size (this includes techniques or standardized protocols for targeted exams where dose is matched to indication/reason for exam; i.e. extremities or head) *Use of iterative reconstruction technique DLP: 631 mGy-cm FINDINGS: Chronic encephalomalacia/gliosis in the left insular region. Multiple chronic bilateral lacunar infarcts. There is no evidence of acute intracranial hemorrhage or edematous territorial infarction. Scattered hypoattenuation in the periventricular and deep white matter are consistent with moderate microangiopathy. Edouard-white matter differentiation is preserved. Proportional prominence of the ventricles and sulcal spaces. No evidence for obstructive hydrocephalus. No abnormal mass effect or midline shift. No extra-axial fluid collections. No acute soft tissue or osseous abnormalities. The mastoid air cells and paranasal sinuses are clear. CT/CT head for stroke IMPRESSION: 1. No evidence of acute intracranial hemorrhage or edematous territorial infarction. 2. 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
--- NOTE | ~2022-09-19 | MR_ITS ---
MRI OF THE BRAIN WITHOUT IV CONTRAST INDICATION: Stroke. COMPARISON: CTA head and neck September 19, 2022. TECHNIQUE: Multiplanar multisequence MR imaging of the brain was obtained without IV contrast. FINDINGS: There is a acute infarct within the right SUPERVISOR SANDING territory involving a significant portion of the right occipital lobe as well as portions of the mesial right temporal lobe and the right thalamus. Cytotoxic edema results in local cerebral sulcal effacement without midline shift. There is no hemorrhagic transformation. There is chronic microangiopathy and there is a chronic left MCA territory infarct. There is no hydrocephalus, extra-axial surface collection, or herniation. The major flow voids at the skull base are preserved. There is no intracranial hemorrhage on the gradient recalled echo acquisition. The midline structures are normal. The cerebellar tonsils are normally positioned. The cerebellum and brainstem are normal. The craniocervical junction is normal. Osseous marrow signal intensity is homogenous. The visualized soft tissues are unremarkable. MR/MR head/brain wo con IMPRESSION: - There is a acute infarct within the right SUPERVISOR SANDING territory involving a significant portion of the right occipital lobe as well as portions of the mesial right temporal lobe and the right thalamus. Cytotoxic edema results in local cerebral sulcal effacement without midline shift. There is no hemorrhagic transformation. - There is chronic microangiopathy and there is a chronic left MCA territory infarct.
--- NOTE | ~2022-09-19 | CT_ITS ---
EXAMINATION: CT ANGIOGRAM NECK WITH CONTRAST CT ANGIOGRAM BRAIN WITH CONTRAST CLINICAL INFORMATION: Stroke. COMPARISON: Brain MRI 09/19/2021.. TECHNIQUE: Test bolus sequences followed by intravenous administration 70 mL of Omnipaque 350. Helical imaging was performed in the axial plane from the thoracic inlet to the skull vertex. Delayed postcontrast imaging of the head was also performed. The data was processed at the cytotechnologist workstation for generation of MIP sequences. Angled MIPs and volume rendered reformatted images were also generated at an offline 3D workstation. Stenoses are assessed in accordance with NASCET criteria unless otherwise indicated. This CT examination was performed using dose optimization techniques as appropriate, variously including the following: *Automated exposure control *Adjustment of mA and/or kV according to patient size (this includes techniques or standardized protocols for targeted exams where dose is matched to indication/reason for exam; i.e. extremities or head) *Use of iterative reconstruction technique DLP: 1354 mGy-cm FINDINGS: Head CT: There is no intracranial hemorrhage, extra-axial collection, mass effect, or acute large territorial infarction. There is a chronic infarct within the left frontal lobe, operculum, and insula. An age-indeterminate infarct is seen within the right lateral basal ganglia, presumably chronic. The ventricles are normal in size without hydrocephalus. The dural venous sinuses are normally opacified. No abnormal enhancement is seen. The extracranial structures are within normal limits. Neck CTA: The aortic arch is patent. The imaged portions of the great vessels are patent. The bilateral common and internal carotid arteries are patent. Cervical segments of both internal carotid arteries are patent. Mild atheromatous changes are seen at the carotid siphons without stenosis. The bilateral vertebral arteries are patent. Vertebral arteries appear codominant. Head CTA: No large vessel occlusion is seen. The intradural vertebral arteries appear patent. The left NUTRITION [employer] DIETETICS INSTRUCTOR appears patent. The right NUTRITION [employer] DIETET[employer] INSTRUCTOR appears severely stenotic at the proximal P2 segment and the NUTRITION AND DIETETICS INSTRUCTOR collaterals are significantly diminished on the right side. Intracranial ICAs appear patent. The ACAs appear patent. The MCAs appear patent and the collaterals are symmetric. No aneurysm is seen. 18 mm infundibulum versus aneurysm is seen at the right posterior indicating artery origin. Non-vascular findings: The cervical soft tissues appear normal. The lung apices are clear. Degenerative changes are seen within the spine. There are postoperative findings related to anterior cervical discectomy and fusion at C5-C7 with solid interbody fusion at C5-C6. Some bridging bone is also seen at the C6-C7 level. CT/CT angio head neck stroke IMPRESSION: CT HEAD: No intracranial hemorrhage or large acute infarction. Age-indeterminate infarct in the right lateral basal ganglia, presumably chronic. Chronic infarct in the left frontal lobe, operculum, and insula. CTA NECK: No hemodynamically significant stenosis in the major arteries of the neck. CTA HEAD: Right N[employer]ITION [employer] DIETET[employer] INSTRUCTOR appears severely stenotic at the proximal P2 segment. NUTRITION [employer] DIETETICS INSTRUCTOR collaterals are significantly diminished on the right side. No additional large vessel occlusion or significant stenosis within the intracranial circulation. 2 mm infundibulum versus aneurysm seen at the right posterior commuting artery origin. This critical result was discussed with on 09/19/2022 7:50 PM, and it was ascertained that the content and urgency of the report was understood at the time of direct communication.
--- NOTE | ~2022-09-19 | XR_ITS ---
EXAMINATION: XR CHEST CLINICAL INFORMATION: Stroke. COMPARISON: Chest radiograph 03/05/2014. TECHNIQUE: Frontal view of the chest was obtained. FINDINGS: Stable appearance of the cardiomediastinal silhouette. Unchanged prominence of the right hilum. Leadless pacer projecting over the left mid chest. Partially imaged cervical fusion hardware. New subtle focal hazy airspace opacities projecting over the right mid to lower lung. No pleural effusion or pneumothorax. No acute osseous abnormalities. Redemonstration of calcific tendinosis of the right rotator cuff. XR/XR chest 1V IMPRESSION: New subtle focal hazy airspace opacities projecting over the right mid to lower lung could be infectious or inflammatory etiology such as related with early pneumonia. A follow-up imaging after treatment is recommended to ensure appropriate resolution and rule out malignancy.
--- NOTE | 2022-09-19 17:54 | ECG_ITS ---
Test Reason : STROKE Blood Pressure : / mmHG Vent. Rate : 090 BPM Atrial Rate : 090 BPM P-R Int : 170 ms QRS Dur : 088 ms QT Int : 388 ms P-R-T Axes : 022 023 046 degrees QTc Int : 474 ms Normal sinus rhythm Normal ECG No previous ECGs available Referred By: Erica Apodaca Electronically Signed By:Jessee [place]
[2022-09-19 17:58] LABS: Glucose, Whole Blood 131 mg/dL (60-115)
[2022-09-19 18:04] LABS: MANUAL DIFF FLAG NO
[2022-09-19 18:07] LABS: Basophils Absolute Auto 0.1 X10*3/uL (0.0-0.2); Basophils Percent Auto 0.8 % (0-2); Eosinophils Absolute Auto 0.3 X10*3/uL (0.0-0.4); Eosinophils Percent Auto 2.9 % (0-4); Hematocrit 41.8 % (37.0-47.0); Imm Gran Abs Auto 0.02 X10*3/uL (0.00-0.03); Imm Gran Pct Auto 0.2 % (0.0-0.4); Lymphocytes Absolute Auto 2.4 X10*3/uL (1.2-4.9); Lymphocytes Percent Auto 23.8 % (20-40); Mean Corpuscular HGB Conc 33.5 g/dl (31.0-35.0); Mean Corpuscular Hemoglobin 29.4 pg (27.0-33.0); Mean Corpuscular Volume 87.8 fL (80.0-98.0); Mean Platelet Volume 9.8 fL (9.4-12.3); Monocytes Absolute Auto 0.5 X10*3/uL (0.1-1.2); Monocytes Percent Auto 4.8 % (2-11); Neutrophils Absolute Auto 6.8 x10*3/uL (2.0-8.3); Neutrophils Percent Auto 67.5 % (45-73); Platelet Count 310 X10*3/uL (160-400); Red Blood Count 4.76 X10*6/uL (4.20-5.50); Red Cell Distribution Width 14.7 % (11.0-16.0)
[2022-09-19 18:13] LABS: INTERNATIONAL NORM RATIO 0.9 (0.9-1.1); Prothrombin Time 11.4 SEC (11.1-13.3)
[2022-09-19 18:15] LABS: Partial Thromboplastin Time 30.9 SEC (26.0-36.4)
[2022-09-19 18:16] LABS: Stroke Lab Use COMPLETE
--- NOTE | 2022-09-19 18:19 | ED_ITS ---
HPI - Neuro Symptoms/Deficit General Chief Complaint: Stroke Stated Complaint: ?CVA Time Seen by Provider: 09/19/22 17:54 Source: patient and EMS Mode of arrival: EMS Limitations: no limitations History of Present Illness HPI Narrative: 72-year-old female came in by ambulance as a stroke alert. Patient last known normal was about 17:00 before arrival patient was talking to her daughter on the phone daughter noticed that the patient was garbled speech and confuse called 911, on initial exam noticed left facial droop with left upper extremity pronator drift and left lower extremity weakness. On arrival patient has initial stroke screening exam NIH was 4. Patient is not on AC therapy. Related Data Home Medications Medication Instructions Recorded Confirmed albuterol sulfate 90 mcg/actuation 2 puff PO Q4H PRN wheezing 04/02/21 04/02/21 aerosol inhaler citalopram 10 mg tablet 0.5 - 1 tab PO BEDTIME 04/02/21 11/18/21 clotrimazole-betamethasone 1 appl topical NEEDED 04/02/21 %-0.05 % topical cream lithium carbonate 300 mg capsule 150 mg PO BEDTIME 04/02/21 11/18/21 simethicone 180 mg capsule 1 cap PO TID 04/02/21 11/18/21 (Anti-Gas Ultra Strength) carica papaya (Papaya Enzyme 1 tab PO TID 05/13/21 05/13/21 tablet) cetirizine 10 mg capsule 10 mg PO DAILY 05/13/21 11/18/21 coenzyme Q10 100 mg capsule 200 mg PO DAILY 05/13/21 11/18/21 (CoQ-10) flaxseed oil 1,000 mg capsule 1,000 mg PO DAILY 05/13/21 11/18/21 turmeric 400 mg capsule 400 mg PO DAILY 05/13/21 11/18/21 valsartan 80 mg tablet 1 tab PO BID 05/13/21 11/18/21 vitamin B complex 1 cap PO DAILY 05/13/21 11/18/21 aspirin 81 mg tablet,delayed 1 tab PO DAILY 11/18/21 11/18/21 release atorvastatin 80 mg tablet 1 tab PO DAILY 11/18/21 11/18/21 levothyroxine 100 mcg tablet 1 tab PO QAM 10/11/22 10/11/22 Allergies Allergy/AdvReac Type Severity Reaction Status Date / Time melon [MELON] Allergy Severe THROAT Verified 09/19/22 18:22 ITCHING peanut [PEANUT] Allergy Intermediate NASAL Verified 09/19/22 18:22 CONGESTION sunflower seed Allergy Hives Verified 09/19/22 18:22 Review of Systems Review of Systems: All other systems are reviewed and are negative Constitutional: Reports as per HPI and Reports no additional constitutional complaints Eyes: Reports as per HPI and Reports no additional eye complaints Reports system reviewed and no additional complaints, except as documented Cardiovascular: Reports as per HPI and Reports no additional cardiovascular complaints Respiratory: Reports as per HPI and Reports no additional respiratory complaints Gastrointestinal: Reports as per HPI and Reports no additional gastrointestinal complaints Genitourinary: Reports no additional female genitourinary complaints Musculoskeletal: Reports no additional musculoskeletal complaints Skin/Breast: Reports system reviewed and no additional complaints, except as docu Psychiatric: Reports no additional psychiatric complaints Endocrine: Reports no additional endocrine complaints Hematologic/Lymphatic: Reports no additional hematologic/lymphatic complaints Allergic/Immunologic: Reports no additional allergic/immunologic complaints Reports system reviewed and no additional complaints, except as documented and Reports Abnormal speech present [facility] Past Medical History Medical History Bipolar disorder CVA (cerebral vascular accident) GERD (gastroesophageal reflux disease) Hiatal hernia History of depression HTN (hypertension) Hx of bronchitis Hypothyroidism Surgical History H/O cervical discectomy History of arthroscopy of right knee History of loop recorder Hx of colonoscopy Hx of endoscopy Hx of hysterectomy Hx of left cataract extraction Hx of right cataract extraction Social History Social History Are you a primary child day care center worker to a significant other at home: No Do you presently have visiting nurse or other home services: No Alcohol intake: never Patient Tobacco Use Status: Never used Tobacco Smoked in Last 30 Days: No Use of substances other than those prescribed or required for medical reasons: No Advance Directives: No Advance Directives Information Provided: Yes Physical Exam Vital Signs: Vital Signs: Last Vital Signs Temp 97.7 F 09/19/22 19:54 Pulse 83 09/19/22 19:57 Resp 19 09/19/22 19:57 BP 142/81 H 09/19/22 19:57 Pulse Ox 94 09/19/22 19:57 O2 Del Method Nasal Cannula 09/19/22 19:57 O2 Flow Rate 4 09/19/22 19:57 Oxygen Flow Rate 3 09/19/22 18:11 BMI result Body Mass Index 25.8 Vital signs have been reviewed as appeared to be correct. Blood pressure normal. Heart rate normal. Respiration rate normal. Temperature normal. Oxygen saturation normal. Appearance: Alert. Oriented X3. No acute distress. Head: Normal external exam. Normocephalic. Atraumatic. No Salas signs noted. No raccoon eyes noted Eyes: PERRLA. EOMI. Conjunctiva and sclera normal. Eyelids normal. ENT: TM's Normal. Pharynx normal. Uvula midline. Moist mucous membranes. No trismus noted. No drooling noted. No muffled voice noted. Neck: Normal inspection. Neck supple. FROM. No adenopathy. Thyroid Normal. No meningeal signs. No neck mass noted. CVS: Normal heart rate and rhythm. Heart sound normal. No murmurs noted. Pulses normal throughout. Respiratory: No respiratory distress. Painless inspiration. Breath sounds normal. No wheezes/rales/rhonchi noted. Chest nontender. No accessory muscle usage noted or decreased air movement noted. Abdomen: Soft and nontender. Bowel sounds normal in all 4 quadrants. No distention noted. No organomegaly noted. No visible injury noted. Back: No CVA tenderness. Full range of motion noted. Skin: Skin warm and dry. Normal skin color. Normal skin turgor. No rashes/ lesions/lacerations noted. Extremities: No lower extremity edema. Extremities exhibit normal range of motion. Extremities nontender. Neuro: Oriented X 3. Cranial nerve exam: Mild left facial droop. Mild left upper extremity weakness, No sensory deficit. Reflexes normal. Course Course Course Narrative: 18:15: CT reading with no intra cranial bleed. 18:30: Case discussed with Dr. Reilly decision was made to give tPA. 18:37: TPA was started. 19:45: CT angiogram of head and neck showed no large vessel occlusion. 20:10: Case discussed with Dr. Talavera will admit the patient to ICU. Medications Administered Discontinued Medications Generic Name Dose Route Start Last Admin Trade Name Freq PRN Reason Stop Dose Admin Alteplase, Recombinant 54 mg 09/19/22 18:25 09/19/22 18:37 Alteplase 100 Mg Vial 0.9 mg/kg (54 mg) 09/19/22 18:26 54 mg IV Administration ONCE ONE Iohexol 70 ml 09/19/22 19:08 09/19/22 19:08 Iohexol 350 Mg/Ml 100 Ml Infus..Btl IV 09/19/22 19:09 70 ml ONCE ONE Administration Medical Decision Making Differential Diagnosis Differential Diagnoses: The differential diagnosis associated with the presentation includes (Ischemic cerebrovascular accident, hemorrhagic stroke, electrolyte abnormality, hypoglycemia, pneumonia, severe anemia.) Admission/Observation Consideration of admission/observation: Escalation of care including admission/observation considered Consult Healthcare Provider Management of the patient was discussed with: Recreational Counselor (Dr. Talavera) Lab Data MDM Lab Attestation statement: I reviewed the patient's lab results. 09/19/22 17:58 09/19/22 17:58 Labs: Lab Results 09/19/22 09/19/22 09/19/22 Range/Units 17:51 17:58 17:58 WBC 10.0 (4.8-10.8) X10*3/uL RBC 4.76 (4.20-5.50) X10*6/uL Hgb 14.0 (12.0-16.0) g/dl Hct 41.8 (37.0-47.0) % MCV 87.8 (80.0-98.0) fL MCH 29.4 (27.0-33.0) pg MCHC 33.5 (31.0-35.0) g/dl RDW 14.7 (11.0-16.0) % Plt Count 310 (160-400) X10*3/uL MPV 9.8 (9.4-12.3) fL Immature Gran % (Auto) 0.2 (0.0-0.4) % Neut % (Auto) 67.5 (45-73) % Lymph % (Auto) 23.8 (20-40) % Union % (Auto) 4.8 (2-11) % Eos % (Auto) 2.9 (0-4) % Baso % (Auto) 0.8 (0-2) % Lymph # (Auto) 2.4 (1.2-4.9) X10*3/uL Union # (Auto) 0.5 (0.1-1.2) X10*3/uL Eos # (Auto) 0.3 (0.0-0.4) X10*3/uL Baso # (Auto) 0.1 (0.0-0.2) X10*3/uL Abs Immat Gran (auto) 0.02 (0.00-0.03) X10*3/uL Absolute Neuts (auto) 6.8 (2.0-8.3) x10*3/uL Absolute Nucleated RBC 0.000 (0.0-0.012) X10*3/uL Nucleated RBC % (auto) 0.0 (0.0-0.2) /100WBC PT (11.1-13.3) SEC Whole Blood PT (11.1-13.5) sec INR (0.9-1.1) Whole Blood INR (0.9-1.1) APTT (26.0-36.4) SEC Sodium 143 (135-145) mmol/L Potassium 3.7 D (3.3-5.1) mmol/L Chloride 110 H (96-108) mmol/L Carbon Dioxide 23 (22-29) mmol/L Anion Gap 14 (12-20) BUN 13 (9-16) mg/dL Creatinine 0.83 (0.5-1.4) mg/dL Estim Creat Clear Calc 48.9 Estimated GFR > 60 POC Glucose 131 H (60-115) mg/dL Random Glucose 132 H (60-115) mg/dL Calcium 9.7 (8.4-10.2) mg/dL Total Bilirubin 0.4 (0.0-1.0) mg/dL AST 23 (5-31) U/L ALT 21 (0-31) U/L Alkaline Phosphatase 54 (39-117) U/L Total Creatine Kinase 96 (26-140) U/L Troponin I High Sens (<3.5-17.0) ng/L Total Protein 6.7 (6.5-8.0) g/dL Albumin 4.0 (3.5-5.0) g/dL 08/12/23 08/12/23 08/12/23 Range/Units 17:58 17:59 18:10 WBC (4.8-10.8) X10*3/uL RBC (4.20-5.50) X10*6/uL Hgb (12.0-16.0) g/dl Hct (37.0-47.0) % MCV (80.0-98.0) fL MCH (27.0-33.0) pg MCHC (31.0-35.0) g/dl RDW (11.0-16.0) % Plt Count (160-400) X10*3/uL MPV (9.4-12.3) fL Immature Gran % (Auto) (0.0-0.4) % Neut % (Auto) (45-73) % Lymph % (Auto) (20-40) % Union % (Auto) (2-11) % Eos % (Auto) (0-4) % Baso % (Auto) (0-2) % Lymph # (Auto) (1.2-4.9) X10*3/uL Union # (Auto) (0.1-1.2) X10*3/uL Eos # (Auto) (0.0-0.4) X10*3/uL Baso # (Auto) (0.0-0.2) X10*3/uL Abs Immat Gran (auto) (0.00-0.03) X10*3/uL Absolute Neuts (auto) (2.0-8.3) x10*3/uL Absolute Nucleated RBC (0.0-0.012) X10*3/uL Nucleated RBC % (auto) (0.0-0.2) /100WBC PT 11.4 (11.1-13.3) SEC Whole Blood PT 11.7 (11.1-13.5) sec INR 0.9 (0.9-1.1) Whole Blood INR 1.0 (0.9-1.1) APTT 30.9 (26.0-36.4) SEC Sodium (135-145) mmol/L Potassium (3.3-5.1) mmol/L Chloride (96-108) mmol/L Carbon Dioxide (22-29) mmol/L Anion Gap (12-20) BUN (9-16) mg/dL Creatinine (0.5-1.4) mg/dL Estim Creat Clear Calc Estimated GFR POC Glucose (60-115) mg/dL Random Glucose (60-115) mg/dL Calcium (8.4-10.2) mg/dL Total Bilirubin (0.0-1.0) mg/dL AST (5-31) U/L ALT (0-31) U/L Alkaline Phosphatase (39-117) U/L Total Creatine Kinase (26-140) U/L Troponin I High Sens 20.6 H (<3.5-17.0) ng/L Total Protein (6.5-8.0) g/dL Albumin (3.5-5.0) g/dL 09/19/22 Range/Units 19:44 WBC (4.8-10.8) X10*3/uL RBC (4.20-5.50) X10*6/uL Hgb (12.0-16.0) g/dl Hct (37.0-47.0) % MCV (80.0-98.0) fL MCH (27.0-33.0) pg MCHC (31.0-35.0) g/dl RDW (11.0-16.0) % Plt Count (160-400) X10*3/uL MPV (9.4-12.3) fL Immature Gran % (Auto) (0.0-0.4) % Neut % (Auto) (45-73) % Lymph % (Auto) (20-40) % Union % (Auto) (2-11) % Eos % (Auto) (0-4) % Baso % (Auto) (0-2) % Lymph # (Auto) (1.2-4.9) X10*3/uL Union # (Auto) (0.1-1.2) X10*3/uL Eos # (Auto) (0.0-0.4) X10*3/uL Baso # (Auto) (0.0-0.2) X10*3/uL Abs Immat Gran (auto) (0.00-0.03) X10*3/uL Absolute Neuts (auto) (2.0-8.3) x10*3/uL Absolute Nucleated RBC (0.0-0.012) X10*3/uL Nucleated RBC % (auto) (0.0-0.2) /100WBC PT (11.1-13.3) SEC Whole Blood PT (11.1-13.5) sec INR (0.9-1.1) Whole Blood INR (0.9-1.1) APTT (26.0-36.4) SEC Sodium (135-145) mmol/L Potassium (3.3-5.1) mmol/L Chloride (96-108) mmol/L Carbon Dioxide (22-29) mmol/L Anion Gap (12-20) BUN (9-16) mg/dL Creatinine (0.5-1.4) mg/dL Estim Creat Clear Calc Estimated GFR POC Glucose (60-115) mg/dL Random Glucose 124 H (60-115) mg/dL Calcium (8.4-10.2) mg/dL Total Bilirubin (0.0-1.0) mg/dL AST (5-31) U/L ALT (0-31) U/L Alkaline Phosphatase (39-117) U/L Total Creatine Kinase (26-140) U/L Troponin I High Sens (<3.5-17.0) ng/L Total Protein (6.5-8.0) g/dL Albumin (3.5-5.0) g/dL Independent Interpretation I performed an independent interpretation of an: EKG (Normal sinus rhythm at 90 beats per minute, normal intervals, no ST-T changes.) and CT Scan (1. No evidence of acute intracranial hemorrhage or edematous territorial infarction. 2. 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 ) Interpretation: CT angiogram of the head and neck:CT HEAD: No intracranial hemorrhage or large acute infarction. Age-indeterminate infarct in the right lateral basal ganglia, presumably chronic. Chronic infarct in the left frontal lobe, operculum, and insula. ? CTA NECK: No hemodynamically significant stenosis in the major arteries of the neck. ? CTA HEAD: Right STRUCTURAL DRAFTER appears severely stenotic at the proximal P2 segment. STRUCTURAL DRAFTER collaterals are significantly diminished on the right side. No additional large vessel occlusion or significant stenosis within the intracranial circulation. ? 2 mm infundibulum versus aneurysm seen at the right posterior commuting artery origin. Radiology Impression Discussion of test interpretation with radiology: I have reviewed the radiologist's reading. NIH Stroke Scale Internal: Initial- Upon Arrival Time: 18:19 Level of Consciousness: Alert Level of Consciousness Questions: Answers both questions correctly Level of Consciousness Commands: Performs both tasks correctly Best Gaze: Normal Visual: No visual loss Facial Palsy: Minor paralyis Motor Arm (Right): No drift Motor Arm (Left): Drift Motor Leg (Right): No drift Motor Leg (Left): Drift Limb Ataxia: Absent Sensory: Mild to moderate sensory loss Best Language: No aphasia Dysarthia: Normal Extinction and Inattention: No abnormality Score: 4 Critical Care Time Critical Care Time Critical Care Time: Yes Total Critical Care Time: 60 Attestation: I spent 60 minutes providing critical care service to the patient, this including time spent at the bedside to evaluate the patient, reassess the patient, monitoring vital signs, review labs, and radiographic studies, counseling the patient/family, discussing the case with consultants, disposition the patient. Discharge Plan Discharge Clinical Impression: Cerebrovascular accident Patient Disposition: Admitted As Inpatient
[2022-09-19 18:22] LABS: Prothrombin Time Whole Bld POC 11.7 sec (11.1-13.5)
--- NOTE | 2022-09-19 18:38 | PC.NURSE ---
bolus given of 5.4
[2022-09-19 18:44] LABS: Alanine Aminotransferase 21 U/L (0-31); Alkaline Phosphatase 54 U/L (39-117); Anion Gap 14 (12-20); Aspartate Amino Transferase 23 U/L (5-31); Bilirubin Total 0.4 mg/dL (0.0-1.0); Blood Urea Nitrogen 13 mg/dL (9-16); Calcium 9.7 mg/dL (8.4-10.2); Carbon Dioxide 23 mmol/L (22-29); Chloride 110 mmol/L (96-108); Creatinine Clr Calc Pharmacy 48.9; Estimated Glomerular Filt Rate > 60; Glucose Random 132 mg/dL (60-115); Potassium 3.7 mmol/L (3.3-5.1); Sodium 143 mmol/L (135-145); Total Protein 6.7 g/dL (6.5-8.0)
[2022-09-19 18:51] LABS: Troponin-I High Sensitivity 20.6 ng/L (<3.5-17.0)
[2022-09-19] MEDS: iohexoL 350 MG/ML 100 ML INFUS..BTL 70 ML IV (19:08)
--- NOTE | 2022-09-19 19:45 | PC.NURSE ---
Late entry: 1746: pt arrived to ER, Dr. Apodaca to EMS stretcher to assess patient. This RN swapped IV cath for CT, blood work obtained 1757: pt in room, changed over to gown and placed on monitor. EKG obtained, second IV started 1832: verbal order from Dr. Apodaca to start TPA. Pt weight verified 60kg exact on bedscale, 1836: 5.4 ml TPA bolused. 48.6 ml dose then started on IV pump over 1 hour 1846: pt brought back to CT for CTA. This RN stayed to monitor patient, no acute changes while in CT 1854: neuro check, pt alert and oriented x4, responds to all verbal commands, shows no signs of confusion, pt able to move all four extremities however, left leg is slightly weaker than the right 1906: pt back in room, on monitor normal sinus rhythm, pt continues to be alert and oriented x4, no signs of confusion, speech does appear to be slow but is answering questions appropriately. Vital signs remain stable. Left leg remains slightly weaker than the right 1936: TPA completed, IV flushed, pt continues to remain A&Ox4, offers no complaints to this RN, left leg continues to remain slightly weaker then the right. pt is able to push with foot but struggles to lift the leg. Arms are equally as strong bilaterally with n issues 1950: Pt repositioned in bed for comfort, offers no complaints to this RN, blood pressure slightly elevated at 153/85, MD aware, no orders at this time. Pt respirations equal and unlabored, skin pwd, alert and oriented x4, pupils ERR
[2022-09-19 19:59] LABS: Glucose Random 124 mg/dL (60-115)
--- NOTE | 2022-09-19 22:01 | PC.NURSE ---
pt conitnues to rest comfortably, reporting no pain, alert and oriented x4, skin pwd, no apparent distress. Pt continues to report weakness in left leg
[2022-09-19 22:16] LABS: Glucose, Whole Blood 151 mg/dL (60-115)
--- NOTE | 2022-09-19 23:37 | P.HPCC_ITS ---
History of Present Illness Date of Service: 09/19/22 Attending physician on admission: Austin Gutierrez Chief Complaint: Stroke Ms. Hutton is a 72-year-old female with past medical history of CVA, HTN, hypothyroidism, GERD, bipolar disorder, depression, and bilateral cataract surg eries, who was BIBA as a stroke alert. ? Last known well time was about 1700 when her daughter noticed that the patient had? garbled speech and confusion while talking on the phone with her.?? On arrival to the ED initial? NIH was 4. The patient's blood pressure 133/75, heart rate 87, temp 97.8.? O2 sat 93% on 3 L nasal cannula.? Laboratory data was unremarkable. Imaging: XR/XR chest 1V IMPRESSION: New subtle focal hazy airspace opacities projecting over the right mid to lower lung could be infectious or inflammatory etiology such as related with early pneumonia. A follow-up imaging after treatment is recommended to ensure appropriate resolution and rule out malignancy. CT/CT head for stroke IMPRESSION: 1.? No evidence of acute intracranial hemorrhage or edematous territorial infarction. 2.? 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 CT/CT angio head? neck stroke IMPRESSION: CT HEAD: No intracranial hemorrhage or large acute infarction. Age-indeterminate infarct in the right lateral basal ganglia, presumably chronic. Chronic infarct in the left frontal lobe, operculum, and insula. ? CTA NECK: No hemodynamically significant stenosis in the major arteries of the neck. ? CTA HEAD: Right MOBILE QA TESTER appears severely stenotic at the proximal P2 segment. MOBILE QA TESTER collaterals are significantly diminished on the right side. No additional large vessel occlusion or significant stenosis within the intracranial circulation. ? 2 mm infundibulum versus aneurysm seen at the right posterior commuting artery origin. ED COURSE: tPa was given at 18:37 per neurology recommendation.? Review of Systems Constitutional: Constitutional: Reports headache(s) ENT: Reports headache(s) Cardiovascular: Cardiovascular: Denies chest pain, Denies rapid heart rate, Denies leg edema and Denies dyspnea Respiratory: Respiratory: Denies dyspnea Gastrointestinal: Gastrointestinal: Denies abdominal pain Musculoskeletal: Musculoskeletal: Reports muscle weakness (left upper and l ower extremeties) Neurologic: Reports as per HPI, Denies Abnormal speech present and Reports headache(s) COUNTS INCLUDE 234 BEDS AT THE [facility] Past Medical History Medical History Bipolar disorder CVA (cerebral vascular accident) GERD (gastroesophageal reflux disease) Hiatal hernia History of depression HTN (hypertension) Hx of bronchitis Hypothyroidism Surgical History Surgical History H/O cervical discectomy History of arthroscopy of right knee History of loop recorder Hx of colonoscopy Hx of endoscopy Hx of hysterectomy Hx of left cataract extraction Hx of right cataract extraction Social History Social History Are you a primary prompt care rn to a significant other at home: No Do you presently have visiting nurse or other home services: No Alcohol intake: never Patient Tobacco Use Status: Never used Tobacco Smoked in Last 30 Days: No Use of substances other than those prescribed or required for medical reasons: No Advance Directives: No Advance Directives Information Provided: Yes Nutrition Risks: No Nutritional Risk Meds Allergies Allergy/AdvReac Type Severity Reaction Status Date / Time melon [MELON] Allergy Severe THROAT Verified 09/19/22 18:22 ITCHING peanut [PEANUT] Allergy Intermediate NASAL Verified 09/19/22 18:22 CONGESTION sunflower seed Allergy Hives Verified 09/19/22 18:22 Active Medications: Current Medications Sodium Chloride (0.9 % Sodium Chloride Flush 3 Ml Syringe) 3 ml [facility] Home Medications Medication Instructions Recorded Confirmed Last Taken Type carica papaya (Papaya Enzyme 1 tab PO TID 05/13/21 09/19/22 09/18/22 History tablet) flaxseed oil 1,000 mg capsule 1,000 mg PO DAILY 05/13/21 09/19/22 09/18/22 History turmeric 400 mg capsule 400 mg PO DAILY 05/13/21 09/19/22 09/18/22 History valsartan 80 mg tablet 1 tab PO BID 05/13/21 09/19/22 09/18/22 History aspirin 81 mg tablet,delayed 1 tab PO DAILY 11/18/21 09/19/22 09/18/22 History release levothyroxine 100 mcg tablet 1 tab PO QAM 11/18/21 09/19/22 09/18/22 History escitalopram oxalate 5 mg tablet 10 mg PO DAILY 09/19/22 09/19/22 09/18/22 History menthol 0.44 %-zinc oxide 20.6 % 1 ea topical BID PRN Inflammation 09/19/22 09/19/22 09/18/22 History topical ointment (Calmoseptine) Physical Exam Vital Signs: Vital Signs: Last Vital Signs Temp 99.6 F 09/19/22 22:41 Pulse 83 09/19/22 22:41 Resp 18 09/19/22 22:41 BP 121/76 09/19/22 22:41 Pulse Ox 98 09/19/22 22:41 O2 Del Method Room Air 09/19/22 22:41 O2 Flow Rate 4 09/19/22 22:00 Oxygen Flow Rate 3 09/19/22 18:11 BMI result Body Mass Index 25.8 Const: General: cooperative, comfortable, no acute distress and alert Orientation/consciousness: patient oriented x3 (answering appropriately.) HEENT: Head: Yes normocephalic and Yes atraumatic General nose exam: Normal external nose present (Nares patent, septum midline, sinuses nontender bilaterally.) Mouth: Normal oral and palatal mucosa present (No thrush, tongue in midline, mucosa moist.) Throat: Yes other (No erythema, no exudate.) Eyes: Pupils: Equal, round and reactive pupils present Neck: Neck: Yes supple (no thyromegaly, trachea midline.) Carotids: normal carotid upstroke Resp: Auscultation: clear to auscultation bilaterally (normal work of breathing, no accessory muscle use) Cardio: Jugular venous distension: no JVD Rate: regular rate Rhythm: re gular rhythm Heart sounds: no gallops, no murmurs and no rubs Peripheral pulses: Peripheral pulses 2+ throughout GI: Palpation (GI): Soft to palpation (nondistended.) and nontender Skin: General skin exam: ecchymosis (left hip) Neuro: General: patient oriented x3 (answering appropriately.), moves all extremities and CN's II-XI intact bilaterally Cranial nerves: Yes Equal, round and reactive pupils present Cognition (Neuro): normal cognition Speech: No Abnormal speech present Motor exam (neuro): Pronator motor function not present and Abnormal motor strength present (left upper and lower extremity weakness) Extrem: General: Yes full ROM, Yes capillary refill normal and Yes no clubbing, cyanosis or edema Psych: Affect: normal affect Attitude: cooperative Results Labs 09/19/22 17:58 09/19/22 19:44 Labs: Laboratory Results - last 24 hr 09/19/22 09/19/22 09/19/22 17:51 17:58 17:58 MCV 87.8 MCH 29.4 MCHC 33.5 RDW 14.7 Plt Count 310 MPV 9.8 Immature Gran % (Auto) 0.2 Neut % (Auto) 67.5 Lymph % (Auto) 23.8 [place] % (Auto) 4.8 Eos % (Auto) 2.9 Baso % (Auto) 0.8 Lymph # (Auto) 2.4 [place] # (Auto) 0.5 Eos # (Auto) 0.3 Baso # (Auto) 0.1 Abs Immat Gran (auto) 0.02 Absolute Neuts (auto) 6.8 Absolute Nucleated RBC 0.000 Nucleated RBC % (auto) 0.0 PT Whole Blood PT INR Whole Blood INR APTT Anion Gap 14 Estim Creat Clear Calc 48.9 Estimated GFR > 60 POC Glucose 131 H Random Glucose 132 H Calcium 9.7 Total Bilirubin 0.4 AST 23 ALT 21 Alkaline Phosphatase 54 Total Creatine Kinase 96 Total Protein 6.7 Albumin 4.0 09/19/22 09/19/22 09/19/22 17:59 18:10 19:44 MCV MCH MCHC RDW Plt Count MPV Immature Gran % (Auto) Neut % (Auto) Lymph % (Auto) [place] % (Auto) Eos % (Auto) Baso % (Auto) Lymph # (Auto) [place] # (Auto) Eos # (Auto) Baso # (Auto) Abs Immat Gran (auto) Absolute Neuts (auto) Absolute Nucleated RBC Nucleated RBC % (auto) PT 11.4 Whole Blood PT 11.7 INR 0.9 Whole Blood INR 1.0 APTT 30.9 Anion Gap Estim Creat Clear Calc Estimated GFR POC Glucose Random Glucose 124 H Calcium Total Bilirubin AST ALT Alkaline Phosphatase Total Creatine Kinase Total Protein Albumin 09/19/22 22:11 MCV MCH MCHC RDW Plt Count MPV Immature Gran % (Auto) Neut % (Auto) Lymph % (Auto) [place] % (Auto) Eos % (Auto) Baso % (Auto) Lymph # (Auto) [place] # (Auto) Eos # (Auto) Baso # (Auto) Abs Immat Gran (auto) Absolute Neuts (auto) Absolute Nucleated RBC Nucleated RBC % (auto) PT Whole Blood PT INR Whole Blood INR APTT Anion Gap Estim Creat Clear Calc Estimated GFR POC Glucose 151 H Random Glucose Calcium Total Bilirubin AST ALT Alkaline Phosphatase Total Creatine Kinase Total Protein Albumin Imaging Radiologist's Impressions: Impressions Head CT 09/19/22 18:02 IMPRESSION: 1. No evidence of acute intracranial hemorrhage or edematous territorial infarction. 2. 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 Chest X-Ray 09/19/22 18:10 IMPRESSION: New subtle focal hazy airspace opacities projecting over the right mid to lower lung could be infectious or inflammatory etiology such as related with early pneumonia. A follow-up imaging after treatment is recommended to ensure appropriate resolution and rule out malignancy. Head/Neck CTA 09/19/22 19:07 IMPRESSION: CT HEAD: No intracranial hemorrhage or large acute infarction. Age-indeterminate infarct in the right lateral basal ganglia, presumably chronic. Chronic infarct in the left frontal lobe, operculum, and insula. CTA NECK: No hemodynamically significant stenosis in the major arteries of the neck. CTA HEAD: Right MOBILE QA TESTER appears severely stenotic at the proximal P2 segment. MOBILE QA TESTER collaterals are significantly diminished on the right side. No additional large vessel occlusion or significant stenosis within the intracranial circulation. 2 mm infundibulum versus aneurysm seen at the right posterior commuting artery origin. This critical result was discussed with on 09/19/2022 7:50 PM, and it was ascertained that the content and urgency of the report was understood at the time of direct communication. Assessment and Plan (1) Cerebrovascular accident: Status: Acute Plan ASSESSMENT: 72-year-old female with past medical history of CVA, HTN, hypothyroidism, GERD, bipolar disorder, depression, and bilateral cataract surgeries admitted to ICU for observation post tPa administration. PLAN: Neuro:? Stroke. Initial head CT showed no acute infarct/bleed. NIH score 4. ? Head and neck CT showed right MOBILE QA TESTER appears severely stenotic at the proximal P2 segment. MOBILE QA TESTER collaterals are significantly diminished on the right side. She is status post tPA. Patient does have left upper and lower? extremity weakness. Cranial nerves intact. MRI? ordered. Appreciate neurology services. Cardiac:? no acute issues. ? History of hypertension, on valsartan. Last blood pressure 121/76. Will closely monitor blood pressure, heart rate.? Pulmonary: No acute issues. Renal: ? No acute issues. Endo: ? History of Hypothyroidism.? No acute issues. GI: No acute issues. Heme/onc: No acute issues. Misc:? No acute issues Prophylaxis: No DVT anticoagulation for 24hr post tPA Diet:? NPO per protocol. Speech language consult placed.? Time Spent With Patient Time: Total time managing care of this patient today ____ minutes.
[2022-09-19] MEDS: 0.9 % Sodium Chloride Flush 3 ML SYRINGE IVFLUSH (23:42)
[2022-09-20] VITALS (14 sets, daily range): BP systolic 107–145; BP diastolic 56–78; PULSE 60–75; RESP 11–20; TEMP 36.3–37.1; O2SAT 93–99; BMI 25.4
[2022-09-20 06:09] LABS: MANUAL DIFF FLAG NO
[2022-09-20 06:31] LABS: Albumin Level 3.5 g/dL (3.5-5.0); Anion Gap 12 (12-20); Blood Urea Nitrogen 13 mg/dL (9-16); Calcium 8.9 mg/dL (8.4-10.2); Carbon Dioxide 23 mmol/L (22-29); Chloride 112 mmol/L (96-108); Cholesterol 143 mg/dL; Creatinine Clr Calc Pharmacy 57.5; Estimated Glomerular Filt Rate > 60; Glucose Random 95 mg/dL (60-115); HDL Cholesterol 58 mg/dL; LDL Cholesterol Calculated 75 mg/dl; Magnesium 2.1 mg/dL (1.6-2.6); Phosphorus 3.6 mg/dL (2.7-4.5); Sodium 143 mmol/L (135-145); Triglycerides 51 mg/dL
[2022-09-20 06:45] LABS: Basophils Absolute Auto 0.1 X10*3/uL (0.0-0.2); Basophils Percent Auto 0.7 % (0-2); Eosinophils Absolute Auto 0.3 X10*3/uL (0.0-0.4); Eosinophils Percent Auto 3.7 % (0-4); Hematocrit 37.6 % (37.0-47.0); Hemoglobin 12.6 g/dl (12.0-16.0); Imm Gran Abs Auto 0.01 X10*3/uL (0.00-0.03); Imm Gran Pct Auto 0.1 % (0.0-0.4); Lymphocytes Absolute Auto 1.8 X10*3/uL (1.2-4.9); Lymphocytes Percent Auto 20.9 % (20-40); Mean Corpuscular HGB Conc 33.5 g/dl (31.0-35.0); Mean Corpuscular Hemoglobin 29.9 pg (27.0-33.0); Mean Corpuscular Volume 89.3 fL (80.0-98.0); Mean Platelet Volume 10.6 fL (9.4-12.3); Monocytes Absolute Auto 0.5 X10*3/uL (0.1-1.2); Monocytes Percent Auto 6.2 % (2-11); Neutrophils Absolute Auto 5.9 x10*3/uL (2.0-8.3); Neutrophils Percent Auto 68.4 % (45-73); Platelet Count 265 X10*3/uL (160-400); Red Blood Count 4.21 X10*6/uL (4.20-5.50); Red Cell Distribution Width 14.8 % (11.0-16.0); White Blood Count 8.6 X10*3/uL (4.8-10.8)
--- NOTE | 2022-09-20 06:50 | PC.NURSE ---
ADMIT TO ICU APPROX 23;35 POST-TPA...ALERT..ORIENTED X3..SPEECH CLEAR...FACIAL DROOP RESOLVED...REMAINS WITH LEFT EXTREMETIES WEAKER THAN RIGHT BUT ABLE TO LIFT LEFT LEG AND ARM UP OFF BED....O2 4 L/M WITH SAO2 99%...O2 WEANED OFF AND SAO2 93-95%....LARGE BRUISE TO LEFT HIP AND SMALLER BRUISE TO RIGHT FOREARMM...PATIENT STATED FELL AT HOME PRIOR TOADMISSION...OOB TO BEDSIDE COMMODE THIS AM WITH 2 ASSISTS...ABLE TO REPOSITION SELF DURING THE NIGHT...SAT SELF UP AT BEDSIDE AND STOOD TO COMMODE BUT LEFT LEG REMAINS WEAKER THAN RIGHT LEG...UNSTEADY GAIT...VOIDED 900ml YELLOW URINE...NSR..NO DYSRHYTHMIAS OVERNIGHT
[2022-09-20 07:14] LABS: Glucose, Whole Blood 79 mg/dL (60-115)
--- NOTE | 2022-09-20 07:19 | PHA.MEDREC ---
Pharmacy Consult ? Medication Reconciliation Pharmacy has completed the medication reconciliation. Reviewed med rec done by nursing
--- NOTE | 2022-09-20 09:19 | MHC.CM.PN ---
Addendum entered by Liseth Jack 09/20/22 14:47: [facility] IS UNABLE TO ACCEPT DUE TO CAPACITY, [facility] WILL FOLLOW Original Note: [facility] DELIVERED PT LIVES ALONE. INDEPENDENT AT BASELINE/DRIVES. PT GOES TO [facility] AT [facility] [place] ONCE A MONTH FOR MEDICATION/COUNSELING. + HCP AT HOME, DAUGHTER JACIEL WILL BRING IN A COPY. + COVID VAX X4 PCP DR. GONZALEZ AT [facility]. DP: PT WOULD LIKE TO RETURN HOME WITH SERVICES IF POSSIBLE, [facility] FIRST CHOICE (HAS HAD IN PAST) AND [facility] IS SECOND CHOICE. REFERRALS SENT. FAMILY WILL TRANSPORT ON DC. CM WILL CONTINUE TO FOLLOW FOR ANY CHANGE IN DC NEEDS/PLAN.
--- NOTE | 2022-09-20 09:27 | P.PNCC_ITS ---
Subjective Subjective Date of Service: 09/20/22 Interval History: 72-year-old lady with underlying history of prior CVA, hypertension, hypothyroidism, bipolar disorder, depression admitted on 09/19/2022 with acute CVA with left-sided paresis with tPA administered and improvement in her sym ptoms. CT angio head/ neck with no large vessel occlusion. Patient monitored in the intensive care unit overnight. No events overnight. Critical Care Time (minutes): 0 Physical Exam Vital Signs: Vital Signs: Last Vital Signs Temp 97.3 F 09/20/22 08:00 Pulse 69 09/20/22 09:00 Resp 17 09/20/22 09:00 BP 126/74 09/20/22 09:00 Pulse Ox 93 09/20/22 09:00 O2 Del Method Room Air 09/20/22 09:00 O2 Flow Rate 3 09/20/22 07:00 Oxygen Flow Rate 3 09/19/22 18:11 BMI result Body Mass Index 25.4 Const: General: no acute distress, alert and awake Eyes: Sclerae: sclerae normal EOM: EOMs intact bilaterally Neck: Neck: Yes no lymphadenopathy, Yes trachea midline and Yes supple Resp: Effort & Inspection: normal respiratory effort and no respiratory distress Auscultation: clear to auscultation bilaterally Cardio: Rate: regular rate Rhythm: regular rhythm Heart sounds: no gallops, no murmurs and no rubs GI: Palpation (GI): Soft to palpation and Other GI palpation findings present ( Nontender) Auscultation: normal bowel sounds Neuro: Other: left upper and lower extremities strength 4 out of 5, right-sided referred of 5 Extrem: General: Yes no pedal edema, No clubbing and No cyanosis Objective Data Labs 09/20/22 05:29 09/20/22 05:29 Labs: Laboratory Results - last 24 hr 09/19/22 09/19/22 09/19/22 17:51 17:58 17:58 WBC 10.0 RBC 4.76 Hgb 14.0 Hct 41.8 MCV 87.8 MCH 29.4 MCHC 33.5 RDW 14.7 Plt Count 310 MPV 9.8 Immature Gran % (Auto) 0.2 Neut % (Auto) 67.5 Lymph % (Auto) 23.8 Upton % (Auto) 4.8 Eos % (Auto) 2.9 Baso % (Auto) 0.8 Lymph # (Auto) 2.4 Upton # (Auto) 0.5 Eos # (Auto) 0.3 Baso # (Auto) 0.1 Abs Immat Gran (auto) 0.02 Absolute Neuts (auto) 6.8 Absolute Nucleated RBC 0.000 Nucleated RBC % (auto) 0.0 PT Whole Blood PT INR Whole Blood INR APTT Sodium 143 Potassium 3.7 D Chloride 110 H Carbon Dioxide 23 Anion Gap 14 BUN 13 Creatinine 0.83 Estim Creat Clear Calc 48.9 Estimated GFR > 60 POC Glucose 131 H Random Glucose 132 H Calcium 9.7 Phosphorus Magnesium Total Bilirubin 0.4 AST 23 ALT 21 Alkaline Phosphatase 54 Total Creatine Kinase 96 Troponin I High Sens Total Protein 6.7 Albumin 4.0 Triglycerides Cholesterol LDL Cholesterol, Calc HDL Cholesterol 09/19/22 09/19/22 09/19/22 17:58 17:59 18:10 WBC RBC Hgb Hct MCV MCH MCHC RDW Plt Count MPV Immature Gran % (Auto) Neut % (Auto) Lymph % (Auto) Upton % (Auto) Eos % (Auto) Baso % (Auto) Lymph # (Auto) Upton # (Auto) Eos # (Auto) Baso # (Auto) Abs Immat Gran (auto) Absolute Neuts (auto) Absolute Nucleated RBC Nucleated RBC % (auto) PT 11.4 Whole Blood PT 11.7 INR 0.9 Whole Blood INR 1.0 APTT 30.9 Sodium Potassium Chloride Carbon Dioxide Anion Gap BUN Creatinine Estim Creat Clear Calc Estimated GFR POC Glucose Random Glucose Calcium Phosphorus Magnesium Total Bilirubin AST ALT Alkaline Phosphatase Total Creatine Kinase Troponin I High Sens 20.6 H Total Protein Albumin Triglycerides Cholesterol LDL Cholesterol, Calc HDL Cholesterol 09/19/22 09/19/22 09/20/22 19:44 22:11 05:29 WBC 8.6 RBC 4.21 Hgb 12.6 Hct 37.6 MCV 89.3 MCH 29.9 MCHC 33.5 RDW 14.8 Plt Count 265 MPV 10.6 Immature Gran % (Auto) 0.1 Neut % (Auto) 68.4 Lymph % (Auto) 20.9 Upton % (Auto) 6.2 Eos % (Auto) 3.7 Baso % (Auto) 0.7 Lymph # (Auto) 1.8 Upton # (Auto) 0.5 Eos # (Auto) 0.3 Baso # (Auto) 0.1 Abs Immat Gran (auto) 0.01 Absolute Neuts (auto) 5.9 Absolute Nucleated RBC 0.000 Nucleated RBC % (auto) 0.0 PT Whole Blood PT INR Whole Blood INR APTT Sodium Potassium Chloride Carbon Dioxide Anion Gap BUN Creatinine Estim Creat Clear Calc Estimated GFR POC Glucose 151 H Random Glucose 124 H Calcium Phosphorus Magnesium Total Bilirubin AST ALT Alkaline Phosphatase Total Creatine Kinase Troponin I High Sens Total Protein Albumin Triglycerides Cholesterol LDL Cholesterol, Calc HDL Cholesterol 09/20/22 09/20/22 05:29 07:10 WBC RBC Hgb Hct MCV MCH MCHC RDW Plt Count MPV Immature Gran % (Auto) Neut % (Auto) Lymph % (Auto) Upton % (Auto) Eos % (Auto) Baso % (Auto) Lymph # (Auto) Upton # (Auto) Eos # (Auto) Baso # (Auto) Abs Immat Gran (auto) Absolute Neuts (auto) Absolute Nucleated RBC Nucleated RBC % (auto) PT Whole Blood PT INR Whole Blood INR APTT Sodium 143 Potassium 4.0 Chloride 112 H Carbon Dioxide 23 Anion Gap 12 BUN 13 Creatinine 0.70 Estim Creat Clear Calc 57.5 Estimated GFR > 60 POC Glucose 79 Random Glucose 95 Calcium 8.9 D Phosphorus 3.6 Magnesium 2.1 Total Bilirubin AST ALT Alkaline Phosphatase Total Creatine Kinase Troponin I High Sens Total Protein Albumin 3.5 Triglycerides 51 Cholesterol 143 LDL Cholesterol, Calc 75 HDL Cholesterol 58 Progress Note: A&P Assessment and plan (1) Cerebrovascular accident: Status: Acute (2) HTN (hypertension): Status: Acute (3) Bipolar disorder: Status: Acute (4) Hypothyroidism: Status: Acute Plan Assessment: 72-year-old lady admitted with acute CVA status post tPA with improving symptoms Plan: Neuro: acute CVA status post tPA left-sided weakness improving. Neurology evaluation requested. MRI is pending. Continue with PT/ OT /speech evaluations. Cardiac: No acute issues. underlying history of hypertension. Pulmonary: No acute issues. Renal: No acute issues. Endo: No acute issues. Underlying history of hypothyroidism. GI: No acute issues. ID: No acute issues Heme/Onc: No acute issues. Psych: No acute issues. Underlying history of depression and bipolar disorder. Miscellaneous: No acute issues. Prophylaxis: Pneumatic compression Diet: pending swallow evaluation Quality Stroke Does the patient have a stroke diagnosis?: Yes Reason for No Anti-thrombotic by Day Two: N/A - Med Ordered VTE Prior VTE?: No VTE Risk Level:: Medical - moderate - high VTE Device Contraindication: N/A - Device Ordered VTE Drug Contraindication: Treatment Not Indicated
--- NOTE | 2022-09-20 10:04 | MHC.STROKE ---
09/18/22 1740 EMS PRE-NOTIFIED STROKE ALERT , ARRIVED AT [facility] [place] [address]. SEEN BY DR. CASTRO AND STROKE PROTOCOL ACTIVATED. NIHSS = 4, FACE, LEFT ARM, SPEECH, LKW 1700. CTH AND CTA H/N DONE. NO BLEED, NO LVO. TPA-ALTEPLASE STARTED AT 1837, DTN = 50 MINUTES. FAILED NURSING SWALLOW SCREEN. ADMITTED TO ICU, I SPOKE WITH ICU STAFF, THEY WILL CALL SPEECH TX AND DR. GARCIA AND NOTIFY THEM OF THE PATIENT. VTE COMPRESSION BOOTS CONFIRMED APPLIED. ALL STROKE ORDERS IN PLACE. STROKE EDUCITON INITIATED. I WILL CONTINUE TO FOLLOW.
--- NOTE | 2022-09-20 10:18 | MHC.STROKE ---
Addendum entered by Cammie Boss RN 09/22/22 12:50: I DISCUSSED THE REHAB WITH [facility] AND THEY ARE UNABLE TO ACCEPT THE PATIENT. I MET WITH THE FAMILY AND EXPLAINED THIS, THEY HAVE DECIDED ON [facility] IN [place]. I GAVE THEM DIRECTIONS AND EXPLAINED WHAT THEY NEED TO BRING. I ANSWERED THEIR QUESTIONS. I DISCUSSED THIS WITH THE TUTORING CLINICIAN AND HOSPITALIST. THE DISCHARGE TIME WILL BE DETERMINED AND I DID EXPLAIN THIS TO THE ENTIRE FAMILY. BOTH DAUGHTER AND GRANDDAUGHTER WERE THERE TODAY. SHE IS VERY HOPEFUL. Addendum entered by Cammie Boss RN 09/21/22 15:14: I MET WITH THE PATIENT AND DAUGHTER AGAIN TO REVIEW THE MRI RESULTS. I REVIEWED THE SCREENSHOT OF THE MRI IMAGE AND WE DISCUSSED THE CORRELATING SYMPTOMS IN THAT LOCATION. I DID CHECK HER VISUAL FRIEDMAN AND THERE WERE NOT ANY DEFICITS ON RIGHT OR LEFT PERIPHERAL VISION. I REVIEWED THE MRI IMAGES WITH DR GARCIA AND HE MENTIONED THAT THE DELAY IN TPA GREATER THAN 30 AND 45 MINUTES WAS DUE TO A NISS = 4 AND THEY WERE DETERMINING ELIGIBILITY. THAT THE PATIENT HAS AN ILR IN PLACE. IT COULD BE VASCULAR RELATED IN THE J[employer]ESS FEEDER AREA. CONTINUE ASPIRIN AND PLAVIX. WE DISCUSSED ACUTE REHAB AND BOTH SHE AND HER DAUGHTER AGREE, [facility] IS THEIR FIRST CHOICE. I DID RELAY THIS INFORMATION TO THE TUTORING CLINICIAN LUÍS. Addendum entered by Cammie Boss RN 09/21/22 11:13: I MET WITH THE PATIENT AND HER DAUGHTER THIS MORNING, I REVIEWED THE INDONESIAN VERSION OF THE STROKE EDUCATION BOOKLET. SHE HAD A STROKE LAST YEAR AND WENT TO [facility], AT THAT TIME THEY INSERTED [employer] STORE CLERK. WE DISCUSSED HER INDIVIDUAL RISK FACTORS. HER MRI IS PENDING. I REVIEWED THE PLAN OF CARE. I WILL CONTINUE TO FOLLOW. Original Note: 09/19/221739 EMS PRE-NOTIFIED STROKE ALERT , ARRIVED AT [facility] [place] [address]. SEEN BY DR. CASTRO AND STROKE PROTOCOL ACTIVATED. NIHSS = 4, FACE, LEFT ARM, SPEECH, LKW 1700. CTH AND CTA H/N DONE. NO BLEED, NO LVO. TPA-ALTEPLASE STARTED AT 1837, DTN = 50 MINUTES. FAILED NURSING SWALLOW SCREEN. ADMITTED TO ICU, I SPOKE WITH ICU STAFF, THEY WILL CALL SPEECH TX AND DR. GARCIA AND NOTIFY THEM OF THE PATIENT. VTE COMPRESSION BOOTS CONFIRMED APPLIED. ALL STROKE ORDERS IN PLACE. STROKE EDUCITON INITIATED. I WILL CONTINUE TO FOLLOW.
--- NOTE | 2022-09-20 11:11 | PM.NEUROCN ---
History of Present Illness Data of Consult Service Date: 09/20/22 Primary Care Provider: Unknown Physician HPI Reason for consult: Stroke 72 years old woman with history of her left middle cerebral artery infarct that presented with difficulty speaking a right hemiparesis. For that she was treated did [facility]. She had resolution of most of her problems from that stroke. This time she was talking to her daughter over the phone when she was noted to be suddenly not making sense or speaking and garbled speech. Apparently patient was aware of this problem and stated that she remembered. She was promptly brought to [facility] where she was evaluated and noted to have difficulty speaking and also mild right-sided weakness with an a a stroke scale of for. After discussing with ER physician it was decided to proceed with intravenous tPA treatment. Now she was in ICU. There was no complication of tPA in her symptoms were mostly resolved. There was no sign of confusion or seizure during this episode. Review of Systems Review of Systems: No recent cold or flu-like illness or trauma. [facility] Past Medical History Medical History (Updated 09/20/22 @ 09:46 by Austin Gutierrez MD) Bipolar disorder CVA (cerebral vascular accident) GERD (gastroesophageal reflux disease) Hiatal hernia History of depression HTN (hypertension) Hx of bronchitis Hypothyroidism Surgical History Surgical History H/O cervical discectomy History of arthroscopy of right knee History of loop recorder Hx of colonoscopy Hx of endoscopy Hx of hysterectomy Hx of left cataract extraction Hx of right cataract extraction Social History Social History Household Members: Family Housing: Apartment Are you a primary child caregiver to a significant other at home: No Do you presently have visiting nurse or other home services: No Alcohol intake: never Patient Tobacco Use Status: Never used Tobacco Smoked in Last 30 Days: No e-Cigarette/Vaping Use: Never Used Patient Interested in Nicotine Replacement: No Patient Given Instructions on How to Stop Smoking: No Second Hand Smoke Exposure: No Use of substances other than those prescribed or required for medical reasons: No Currently Displaying Signs/Symptoms of Drug Intoxication Withdrawal: No Any prior treatment program specific to substance use: No Have you been hit, kicked, punched, or otherwise hurt by someone within the past year? If so, by whom?: No Do you feel safe in your current relationship?: Yes Is there a partner from a previous relationship who is making you feel unsafe now?: No Are you made to feel afraid or neglected: No Advance Directives: No Advance Directives Information Provided: Yes Advance Directives on File: No Do you have thoughts of harming others: None Do you have a plan to hurt others: No Plan Recently lost weight without trying: No Nutrition Risks: No Nutritional Risk Patient : No : No Poor oral hygiene: No service: No Meds Allergies Allergy/AdvReac Type Severity Reaction Status Date / Time melon [MELON] Allergy Severe THROAT Verified 09/19/22 18:22 ITCHING peanut [PEANUT] Allergy Intermediate NASAL Verified 09/19/22 18:22 CONGESTION sunflower seed Allergy Hives Verified 09/19/22 18:22 Active Medications: Current Medications Aspirin (Aspirin 81 Mg Tab.Chew) 81 mg PO BEDTIME SHIRA Escitalopram Oxalate (Escitalopram Oxalate 10 Mg Tablet) 10 mg PO DAILY SHIRA Mirtazapine (Mirtazapine 7.5 Mg Tablet) 7.5 mg PO BEDTIME SHIRA Sodium Chloride (0.9 % Sodium Chloride Flush 3 Ml Syringe) 3 ml IVFLUSH QSHIFT [facility] Last Admin: 09/20/22 06:52 Dose: Not Given Home Medications Medication Instructions Recorded Confirmed Last Taken Type carica papaya (Papaya Enzyme 1 tab PO TID 05/13/21 09/19/22 09/18/22 History tablet) flaxseed oil 1,000 mg capsule 1,000 mg PO DAILY 05/13/21 09/19/22 09/18/22 History turmeric 400 mg capsule 400 mg PO DAILY 05/13/21 09/19/22 09/18/22 History valsartan 80 mg tablet 1 tab PO BID 05/13/21 09/19/22 09/18/22 History aspirin 81 mg tablet,delayed 1 tab PO DAILY 11/18/21 09/19/22 09/18/22 History release levothyroxine 100 mcg tablet 1 tab PO QAM 11/18/21 09/19/22 09/18/22 History escitalopram oxalate 5 mg tablet 10 mg PO DAILY 09/19/22 09/19/22 09/18/22 History menthol 0.44 %-zinc oxide 20.6 % 1 ea topical BID PRN Inflammation 09/19/22 09/19/22 09/18/22 History topical ointment (Calmoseptine) mirtazapine 7.5 mg tablet 7.5 mg PO BEDTIME 09/20/22 09/20/22 Unknown History Physical Exam Vital Signs: Vital Signs: Last Vital Signs Temp 97.3 F 09/20/22 08:00 Pulse 69 09/20/22 09:00 Resp 17 09/20/22 09:00 BP 126/74 09/20/22 09:00 Pulse Ox 93 09/20/22 09:00 O2 Del Method Room Air 09/20/22 09:00 O2 Flow Rate 3 09/20/22 07:00 Oxygen Flow Rate 3 09/19/22 18:11 BMI result Body Mass Index 25.4 Neuro: Other: She was alert and awake with normal spontaneity and fluency of speech. She was following commands. Face was almost symmetrical. There was no pronator drift. Deep tendon reflexes were trace to absent with flat plantars. Visual amanda are full. Results Labs 09/20/22 05:29 09/20/22 05:29 Labs: Short CBC 09/19/22 09/20/22 Range/Units 17:58 05:29 WBC 10.0 8.6 (4.8-10.8) X10*3/uL Hgb 14.0 12.6 (12.0-16.0) g/dl Hct 41.8 37.6 (37.0-47.0) % Plt Count 310 265 (160-400) X10*3/uL BMP 09/19/22 09/20/22 17:58 05:29 Sodium 143 143 Potassium 3.7 D 4.0 Chloride 110 H 112 H Carbon Dioxide 23 23 BUN 13 13 Creatinine 0.83 0.70 Calcium 9.7 8.9 D Cardiac Enzymes 09/19/22 Range/Units 17:58 Total Creatine Kinase 96 (26-140) U/L Liver Function 09/19/22 09/20/22 Range/Units 17:58 05:29 Total Bilirubin 0.4 (0.0-1.0) mg/dL AST 23 (5-31) U/L ALT 21 (0-31) U/L Alkaline Phosphatase 54 (39-117) U/L Albumin 4.0 3.5 (3.5-5.0) g/dL Head CT revealed a chronic left perisylvian infarct. 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 There was possible 2 mm PCOM aneurysm. EKG reveals sinus rhythm. Assessment and Plan (1) Cerebrovascular accident: Status: Acute 72 years old woman with previous history of left middle cerebral artery infarct presented with new onset of dysarthria/aphasia with right sided weakness. With clinical diagnosis of acute stroke she was treated with intravenous tPA. Now she was doing better. There were no complications. Her CTA revealed a right posterior cerebral artery stenosis, which could be the cause of this problem. For now, my recommendation is starting aspirin 81 mg + Plavix 75 mg after 24 hours of tPA, statin, and blood pressure control. A noncontrast MRI of brain is also recommended when feasible. She could be read moved to telemetry floor. Time Spent With Patient Time: Total time managing care of this patient today ____ minutes. Procedures Date of Service Date of Service: 09/20/22
--- NOTE | 2022-09-20 11:23 | MHC.SL.SWA ---
Speech Pathologist Impression: Risk of Aspiration Due to: Neurological Condition Dysphasia Diet Status: All aspects of swallow, oral motor function WFL. Liquid Consistency and Strategies for Safe Swallow: Liquid Intake Recommendation: Thin Liquid Intake Strategies: Unrestricted Solid Food Consistency: Dietary Recommendations: Regular Additional Modifications to Solid Foods: Oral Medication Intake: Whole with Liquid Please contact the pharmacy regarding appropriate crushable or liquid drug formulations that are available whenever modified delivery is recommended. Compensatory Strategies and Precautions to be Taken for Safe Swallow: Sitting Upright (90 deg) Supervision While Eating and Drinking for Safe Swallow: None Needed Foods to Avoid: Swallowing Recommended Treatments: Compens. Strategy Educat. Recommendation for Speech: NA:Typical Evaluation Comment: Patient presents with all aspects of oral motor function and oral and pharyngeal phase of swallow WFL. Patient tolerated thin liquids and all food consistencies presented very well. Patient's speech/articulation is clear, evidences no difficulty with word finding at this time. Recommend patient START Regular diet with THIN liquids, pills whole with liquid. Patient is able to independently feed self. MD/RN notified of recommendations in person, Stroke RN, RD by secure text. [employer] will f/u X1 for toleration of diet. Frequency/Duration: 1 f/u Date Range for Service Req: Timeline to reassess: Telephone Diaphragm Assembler Clinican/Clinical Fellow: No Supervisory Statement: I have reviewed and agree with the student/clinical fellow's documentation: N/A Speech Language Pathologist: Kath Verdin M.A., [facility]-[employer]
[2022-09-20] MEDS: Escitalopram Oxalate 10 MG TABLET PO (11:41)
[2022-09-20 11:52] LABS: Glucose, Whole Blood 114 mg/dL (60-115)
--- NOTE | 2022-09-20 12:28 | PM.EVENT ---
Event Note Date of Service: 09/21/22 Event Note: Seen and evaluated Feels better overall To start ASA, Plavix by 630 PM MRI tomorrow Start Statin To do PT\OT Neurology input appreciated Time Spent With Patient Time: Total time managing care of this patient today ____ minutes.
[2022-09-20] MEDS: Valsartan 80 MG TABLET PO ×2 (13:58→21:00)
[2022-09-20] MEDS: Levothyroxine Sodium 100 MCG TABLET PO (13:58)
[2022-09-20] MEDS: Aspirin Enteric Coated 81 MG TABLET.DR PO (18:03)
[2022-09-20] MEDS: Clopidogrel Bisulfate 75 MG TABLET PO (18:03)
[2022-09-20 19:40] LABS: Glucose, Whole Blood 135 mg/dL (60-115)
[2022-09-20] MEDS: Mirtazapine 7.5 MG TABLET PO (21:00)
[2022-09-20] MEDS: Aspirin 81 MG TAB.CHEW PO (21:00)
[2022-09-20] MEDS: Atorvastatin Calcium 40 MG TABLET PO (21:00)
[2022-09-20] MEDS: 0.9 % Sodium Chloride Flush 3 ML SYRINGE IVFLUSH (21:01)
[2022-09-21 01:51] VITALS: BP 119/67; PULSE 65; RESP 17; TEMP 36.5; O2SAT 94
--- NOTE | 2022-09-21 02:06 | PC.NURSE ---
Assumed care at 0130, pt transferred from med tele on bed, pt is alert and oriented x4, nueros WNL, denies any pain nor SOB, settled in the room aware about change of room/unit, encouraged to sleep and rest, bed alarm on.
--- NOTE | 2022-09-21 02:13 | PC.NURSE ---
Assumed care 19:00 on 09/20. Pt continues on q4h neuros as ordered with aspiration precautions in place. Neuros intact. A&Ox4. Tongue midline, smile symmetrical. +Perrla, +tracking and conjugate vision. Denies dizziness, headache, vision changes. +pp/cms. -edema. Denies chest pain. LSCTA on RA with even and unlabored breathing. Tolerating po meds without issue. Denies pain. Resting in bed majority of shift. Patient transferred to s3 @ 02:00 09/21. Handoff report given.
[2022-09-21] MEDS: Levothyroxine Sodium 100 MCG TABLET PO (05:47)
--- NOTE | 2022-09-21 07:00 | CA_ITS ---
Transthoracic Echocardiogram Patient (Last, First, Middle): Alissa Hutton M Gender: Female Date of : 1950 Age: 72 Procedure Date: 09/21/2022 Procedure Type: Transthoracic Echocardiogram [place] [facility] [place] Height: 152.4 cm Weight: 58.51 kg BSA: 1.55 m2 Heart Rate: bpm BP: 119 / 67 mmHg Inspector Metal Can: SAMRA Referring MD: Rizwana Marte [employer] SUPERVISOR Drug Safety Associate: Nakul Calero MD Symptoms: stroke Study Quality: Fair ECG Rhythm: Sinus Conclusions: - 1. Normal LV systolic function with mild LVH with grade 1 diastolic dysfunction 2. Bcle-ky-cuydigio aortic regurgitation 3. Normal RV systolic pressure 4. No gross pericardial effusion Findings Left Ventricle Normal left ventricular size and systolic function. There is mildly increased left ventricular wall thickness. The visually estimated ejection fraction is between 60-65%. Spectral Doppler is indicative of an impaired relaxation filling pattern. E/E prime ratio is <8, consistent with normal filling pressures. Evidence suggests grade I (mild) diastolic dysfunction. Right Ventricle Normal right ventricular cavity size and systolic function. Atria Both atria are normal in size. There is lipomatous hypertrophy of the interatrial septum. Interatrial shunt cannot be excluded. Aortic Valve Normal aortic valve structure and function. There is no aortic valve stenosis. There is mild to moderate aortic valve regurgitation. Mitral Valve Normal mitral valve structure and function. There is trace mitral valve regurgitation. There is no mitral valve stenosis. Pulmonic Valve The pulmonic valve is likely normal. Tricuspid Valve Normal tricuspid valve structure. There is mild tricuspid valve regurgitation. The right ventricular systolic pressure is normal. The right ventricular systolic pressure is 28 mmHg. Normal right atrial pressure. There is no evidence of pulmonary hypertension. Great Vessels The pulmonary artery was not well visualized. There is no dilatation of the ascending aorta. Venous The inferior vena cava is normal in size and collapses greater than 50% with inspiration. Pericardium/Pleural There is no evidence of pericardial effusion. Prior Study Comparison No prior study available for comparison. Measurements 2D Linear Measurements IVSd: 1.21 0.6-0.9/0.6-1.0 cm LVIDd: 3.62 3.9-5.3/4.2-5.9 cm LVIDd Index: 2.34 2.4-3.2/2.2-3.1 cm/m2 LVIDs: 2.30 2.0-3.6 cm LVPWd: 1.21 0.7-1.1 cm Ao Root: 3.40 2.1-3.5 cm LA Diam: 2.80 2.7-3.8/3.0-4.0 cm LAIDs Index: 1.81 1.5-2.3 cm/m2 LV Mass: 179.83 67-162/88-224 g LV Mass Index: 116.02 43-95/49-115 g/m2 LVOT Diam: 2.00 3.0+(-)1.3 cm Mitral Valve MV Pk E: 0.43 MV PK A: 0.93 MV Decel Time: 174.00 E/A: 0.50 E'Lateral: 7.29 E'Medial: 4.90 E/E' Med: 8.70 E/E' Lat: 5.90 PHT: 51.00 MVA PHT: 4.31 Decel [place]rance: 2.46 Aortic Valve AoV Pk Kenny: 1.55 AoV Mn Kenny: 0.95 AoV VTI: 0.33 AoV Pk Grad: 10.00 Aov Mn Grad: 5.00 LEW Cont.VTI: 2.49 AI Pk Kenny: 4.85 AI VTI: 2.57 AI [place]rance: 3.02 AI Alias Kenny: 0.31 AI RV - PISA: 67.00 ERO - PISA: 26.00 LVOT LVOT Pk Kenny: 1.01 LVOT Mn Kenny: 0.69 LVOT VTI: 0.26 LVOT Pk Grad: 4.00 LVOT Mn Grad: 3.00 LVOT Diam: 2.00 LVOT Area: 3.14 Diastolic Function MV Pk E: 0.43 MV Pk A: 0.93 E/A: 0.50 E'Medial: 4.90 E/E' Med: 8.70 E' Laterial: 7.29 E/E' Lat: 5.90 Right Ventricle TAPSE (mm): 25.00 TVS' Kenny: 19.00 Tricuspid Valve TR Pk Kenny: 2.51 TR Pk Grad: 25.00 RA Press: 3.00 RVSP: 28.00 Great Vessels Aorta Ao Root-2D: 3.40 2.0-3.7 cm Ao Asc: 3.40 2.1-3.4 cm Pulmonary Valve PV Pk Kenny: 1.09 Peak PV Grad: 5.00 Updated in Other Vendor System with Status of Final Nakul Caelro MD electronically signed on 09/21/2022 3:56:44 PM with status of Final
[2022-09-21] MEDS: Escitalopram Oxalate 10 MG TABLET PO (07:29)
[2022-09-21] MEDS: Clopidogrel Bisulfate 75 MG TABLET PO (07:30)
[2022-09-21] MEDS: Aspirin Enteric Coated 81 MG TABLET.DR PO (07:31)
[2022-09-21] MEDS: Valsartan 80 MG TABLET PO ×2 (07:31→20:16)
[2022-09-21] MEDS: 0.9 % Sodium Chloride Flush 3 ML SYRINGE IVFLUSH ×3 (07:34→20:16)
[2022-09-21 07:38] LABS: Glucose, Whole Blood 96 mg/dL (60-115)
[2022-09-21 07:41] VITALS: BP 145/72; PULSE 69; RESP 20; TEMP 36.6; O2SAT 92
[2022-09-21 08:11] LABS: Hematocrit 38.1 % (37.0-47.0); Hemoglobin 12.6 g/dl (12.0-16.0); Mean Corpuscular HGB Conc 33.1 g/dl (31.0-35.0); Mean Corpuscular Hemoglobin 29.8 pg (27.0-33.0); Mean Corpuscular Volume 90.1 fL (80.0-98.0); Mean Platelet Volume 10.3 fL (9.4-12.3); Platelet Count 271 X10*3/uL (160-400); Red Blood Count 4.23 X10*6/uL (4.20-5.50); White Blood Count 8.3 X10*3/uL (4.8-10.8)
[2022-09-21 10:44] LABS: Anion Gap 10 (12-20); Blood Urea Nitrogen 10 mg/dL (9-16); Calcium 9.1 mg/dL (8.4-10.2); Carbon Dioxide 25 mmol/L (22-29); Chloride 112 mmol/L (96-108); Creatinine Clr Calc Pharmacy 55.8; Estimated Glomerular Filt Rate > 60; Glucose Random 90 mg/dL (60-115); Sodium 143 mmol/L (135-145)
[2022-09-21 10:52] LABS: Glucose, Whole Blood 97 mg/dL (60-115)
--- NOTE | 2022-09-21 13:02 | P.PNIM_ITS ---
Subjective Subjective Date of Service: 09/21/22 Interval History: Feels better overall numbness improving tolerating diet waiting MRI, PT Review of Systems Review of Systems: Yes all other systems are reviewed and are negative Physical Exam Vital Signs: Vital Signs: Last Vital Signs Temp 97.8 F 09/21/22 07:41 Pulse 69 09/21/22 07:41 Resp 20 09/21/22 07:41 BP 145/72 H 09/21/22 07:41 Pulse Ox 92 09/21/22 07:41 O2 Del Method Room Air 09/21/22 07:41 O2 Flow Rate 3 09/20/22 07:00 Oxygen Flow Rate 3 09/19/22 18:11 BMI result Body Mass Index 25.4 Const: Other: Constitutional : Awake, interactive, not in distress Neck : Normal inspection, Supple Cardiovascular : RRR, no JVP, no lower extremity edema Respiratory : good bilateral air entry, no crackles, wheezes or rhonchi Gastrointestinal: soft, lax, Normal bowel sounds, Non tender Skin : Warm, Dry Neurological : Alert & oriented x3, CN 2-12 within normal, left side very mild difference in strength than right side, speech clear and fluent Objective Data Active Medications Acetaminophen (Acetaminophen 325 Mg Tablet) 650 mg PO Q6H PRN PRN Reason: Headache Aspirin (Aspirin Enteric Coated 81 Mg Tablet.) 81 mg PO DAILY ON LICENSE OF [facility] Last Admin: 09/21/22 07:31 Dose: 81 mg Documented By: RACH Atorvastatin Calcium (Atorvastatin Calcium 40 Mg Tablet) 40 mg PO BEDTIME ON LICENSE OF [facility] Last Admin: 09/20/22 21:00 Dose: 40 mg Documented By: JOSE CRUZ Clopidogrel Bisulfate (Clopidogrel Bisulfate 75 Mg Tablet) 75 mg PO DAILY ON LICENSE OF [facility] Last Admin: 09/21/22 07:30 Dose: 75 mg Documented By: RACH Escitalopram Oxalate (Escitalopram Oxalate 10 Mg Tablet) 10 mg PO DAILY ON LICENSE OF [facility] Last Admin: 09/21/22 07:29 Dose: 10 mg Documented By: RACH Levothyroxine Sodium (Levothyroxine Sodium 100 Mcg Tablet) 100 mcg PO DAILY@0600 ON LICENSE OF [facility] Last Admin: 09/21/22 05:47 Dose: 100 mcg Documented By: CHIDI Mirtazapine (Mirtazapine 7.5 Mg Tablet) 7.5 mg PO BEDTIME ON LICENSE OF [facility] Last Admin: 09/20/22 21:01 Dose: Not Given Documented By: JOSE CRUZ Non-Admin Reason: duplicate order. verified in home meds and pt Sodium Chloride (0.9 % Sodium Chloride Flush 3 Ml Syringe) 3 ml IVFLUSH QSHIFT ON LICENSE OF [facility] Last Admin: 09/21/22 07:34 Dose: 3 ml Documented By: RACH Valsartan (Valsartan 80 Mg Tablet) 80 mg PO BID SHIRA; Protocol Last Admin: 09/21/22 07:31 Dose: 80 mg Documented By: RACH Labs 09/21/22 07:48 09/21/22 07:48 Labs: Laboratory Results - last 24 hr 09/20/22 09/21/22 09/21/22 19:35 07:23 07:48 MCV 90.1 MCH 29.8 MCHC 33.1 RDW 15.0 Plt Count 271 MPV 10.3 Absolute Nucleated RBC 0.000 Nucleated RBC % (auto) 0.0 Anion Gap Estim Creat Clear Calc Estimated GFR POC Glucose 135 H 96 Random Glucose Calcium 09/21/22 09/21/22 07:48 10:38 MCV MCH MCHC RDW Plt Count MPV Absolute Nucleated RBC Nucleated RBC % (auto) Anion Gap 10 L Estim Creat Clear Calc 55.8 Estimated GFR > 60 POC Glucose 97 Random Glucose 90 Calcium 9.1 Assessment and Plan (1) Hypothyroidism: Status: Acute (2) Cerebrovascular accident: Status: Acute Plan 72-year-old lady with underlying history of prior CVA, hypertension, hypothyroid ism, bipolar disorder, depression admitted on 09/19/2022 with acute CVA with left-sided paresis with tPA administered and improvement in her symptoms.? Acute CVA Post tPA CT angio head/ neck with no large vessel occlusion. ASA, Plavix Statin; report muscle pain w atorvastatin prev. Neurology input appreciated Pending MRI PT\OT [employer] cleared her for swallowing HTN Continue Valsartan Hypothyroid Levothyroxine Depression Escitalopram DVT PPX Lovenox Patient pending PT\MRI and placement will need overnight hospital stay. Time Spent With Patient Time: Total time managing care of this patient today ____ minutes. Quality Stroke Does the patient have a stroke diagnosis?: Yes Reason for No Anti-thrombotic by Day Two: N/A - Med Ordered VTE Prior VTE?: No VTE Risk Level:: Medical - moderate - high VTE Device Contraindication: N/A - Device Ordered VTE Drug Contraindication: Treatment Not Indicated
--- NOTE | 2022-09-21 14:15 | MHC.SL.SWA ---
Speech Pathologist Impression: Risk of Aspiration Due to: Neurological Condition Dysphasia Diet Status: Recommend patient continue on Regular Diet with Thin Liquids, Pills whole with liquid. Recommend DC Speech/Language TX at this time. Liquid Consistency and Strategies for Safe Swallow: Liquid Intake Recommendation: Thin Liquid Intake Strategies: Unrestricted Solid Food Consistency: Dietary Recommendations: Regular Additional Modifications to Solid Foods: Oral Medication Intake: Whole with Liquid Please contact the pharmacy regarding appropriate crushable or liquid drug formulations that are available whenever modified delivery is recommended. Compensatory Strategies and Precautions to be Taken for Safe Swallow: Sitting Upright (90 deg) Supervision While Eating and Drinking for Safe Swallow: None Needed Foods to Avoid: Swallowing Recommended Treatments: Compens. Strategy Educat. Recommendation for Speech: NA:Typical Evaluation Comment: Patient tolerating diet well, no further concerns. Recommend patient continue on Regular Diet with Thin Liquids, Pills whole with liquid. Recommend DC Speech/Language TX at this time. Frequency/Duration: 1 f/u Date Range for Service Req: Timeline to reassess: Disability Manager Clinican/Clinical Fellow: No Supervisory Statement: I have reviewed and agree with the student/clinical fellow's documentation: N/A Speech Language Pathologist: Kath Verdin M.A., CCC-BANDER AND CELLOPHANER MACHINE
[2022-09-21 16:00] VITALS: BP 134/60; PULSE 67; RESP 20; TEMP 36.3; O2SAT 97
[2022-09-21 16:20] LABS: Glucose, Whole Blood 114 mg/dL (60-115)
[2022-09-21] MEDS: Enoxaparin Sodium 40 MG/0.4 ML SYRINGE SUBCUT (18:09)
[2022-09-21 19:35] VITALS: BP 137/63; PULSE 73; RESP 18; TEMP 36.4; O2SAT 97
[2022-09-21] MEDS: Atorvastatin Calcium 40 MG TABLET PO (20:16)
[2022-09-21] MEDS: Mirtazapine 7.5 MG TABLET PO (20:16)
[2022-09-21 20:29] LABS: Glucose, Whole Blood 102 mg/dL (60-115)
[2022-09-21 23:47] VITALS: BP 130/62; PULSE 70; RESP 18; TEMP 36.6; O2SAT 97
[2022-09-22 03:17] VITALS: BP 115/56; PULSE 67; RESP 18; TEMP 36.2; O2SAT 97
[2022-09-22] MEDS: Levothyroxine Sodium 100 MCG TABLET PO (05:50)
[2022-09-22] MEDS: 0.9 % Sodium Chloride Flush 3 ML SYRINGE IVFLUSH (07:28)
[2022-09-22 07:29] VITALS: BP 146/68; PULSE 76; RESP 20; TEMP 36.7; O2SAT 97
[2022-09-22] MEDS: Aspirin Enteric Coated 81 MG TABLET.DR PO (07:48)
[2022-09-22] MEDS: Valsartan 80 MG TABLET PO (07:48)
[2022-09-22] MEDS: Clopidogrel Bisulfate 75 MG TABLET PO (07:48)
[2022-09-22] MEDS: Escitalopram Oxalate 10 MG TABLET PO (07:48)
--- NOTE | 2022-09-22 12:36 | PM.DS ---
DS: Providers Provider Date of Service: 09/22/22 Date of admission: 09/19/22 20:20 Primary care physician: Ariana Wilson MD Consults: 09/19/22 20:20 Consult to Neurology Routine Consulting Provider: Tom Reilly Reason for consultation: stroke Has provider been notified: Yes DS: Diagnosis Discharge Diagnosis (1) Hypothyroidism: Status: Acute (2) Cerebrovascular accident: Status: Acute (3) Acute ischemic right posterior cerebral artery (RESIDENTIAL TECH) stroke: Status: Acute DS: Summary Hospital Course Hospital Course: Admission note HPI by ICU provider. Ms. Hutton is a 72-year-old female with past medical history of CVA, HTN, hypothyroidism, GERD, bipolar disorder, depression, and bilateral cataract surgeries, who was BIBA as a stroke alert. ? Last known well time was about 1700 when her daughter noticed that the patient had? garbled speech and confusion while talking on the phone with her.?? On arrival to the ED initial? NIH was 4. The patient's blood pressure 133/75, heart rate 87, temp 97.8.? O2 sat 93% on 3 L nasal cannula.? Laboratory data was unremarkable. ED COURSE: tPa was given at 18:37 per neurology recommendation.?admitted to ICU. Hospital course The patient presented to the hospital with abnormal speech, confusion and reported numbness on left side. Stroke alert was called and she received tPA and admitted to ICU for close monitoring as CTA did not show no large vessel occlusion. He symptoms improved significantly as speech became fluent with no confusion but she continued to report tingling sensation in LUE and LLE. Seen by neurologist who recommended addition of Plavix on top of Aspirin as MRI showed evidence of acute right RESIDENTIAL TECH territory infarction with cytotoxic edema. high intensity statin started as well, she reports being intolerent to Atorvastatin so will be discharged on Rosuvastatin. Seen by PT\OT who recommended need for rehablitation. STONE PLANER cleared her for swallowing and her diet was advanced to regular with no reported concerns. Start Plavix daily with Aspirin Start Rosuvostatin 20 mg daily Continue physical therapy Time Spent with Patient Time attestation: Total time managing care of this patient today ____ minutes. Discharge coordination time: Greater than 30 minutes Quality: Safe Use of Opioids Does Pt have an Active Cancer Diagnosis on the Problem List?: No Quality: Stroke Does the patient have a stroke diagnosis?: Yes Reason for No Anti-thrombotic at DC: N/A - Med Ordered Reason for No Anticoagulant at DC: Not indicated Reason Not Initiating IV-Tpa: N/A - Med Ordered Reason for No Anti-thrombotic by Day Two: N/A - Med Ordered Reason for No Statin at DC: N/A - Med Ordered Physical Exam Vital Signs: Vital Signs: Last Vital Signs Temp 98.0 F 09/22/22 07:29 Pulse 76 09/22/22 07:29 Resp 20 09/22/22 07:29 BP 146/68 H 09/22/22 07:29 Pulse Ox 97 09/22/22 07:29 O2 Del Method Room Air 09/22/22 07:29 O2 Flow Rate 3 09/20/22 07:00 Oxygen Flow Rate 3 09/19/22 18:11 BMI result Body Mass Index 25.4 Const: Other: Constitutional : Awake, interactive, not in distress Neck : Normal inspection, Supple Cardiovascular : RRR, no JVP, no lower extremity edema Respiratory : good bilateral air entry, no crackles, wheezes or rhonchi Gastrointestinal: soft, lax, Normal bowel sounds, Non tender Skin : Warm, Dry Neurological : Alert & oriented x3, CN 2-12 within normal with mild facial sensation difference (less of left), left side very mild difference in strength than right side, speech clear and fluent DS: Data Data Completed and Pending Labs on day of discharge: Laboratory Results - last 24 hr 09/21/22 09/21/22 16:02 20:23 POC Glucose 114 102 Imaging MRI - head: Radiologist's impression: ITS Impressions Head CT 09/19/22 18:02 IMPRESSION: 1. No evidence of acute intracranial hemorrhage or edematous territorial infarction. 2. 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 Chest X-Ray 09/19/22 18:10 IMPRESSION: New subtle focal hazy airspace opacities projecting over the right mid to lower lung could be infectious or inflammatory etiology such as related with early pneumonia. A follow-up imaging after treatment is recommended to ensure appropriate resolution and rule out malignancy. Head/Neck CTA 09/19/22 19:07 IMPRESSION: CT HEAD: No intracranial hemorrhage or large acute infarction. Age-indeterminate infarct in the right lateral basal ganglia, presumably chronic. Chronic infarct in the left frontal lobe, operculum, and insula. CTA NECK: No hemodynamically significant stenosis in the major arteries of the neck. CTA HEAD: Right RESIDENTIAL TECH appears severely stenotic at the proximal P2 segment. RESIDENTIAL TECH collaterals are significantly diminished on the right side. No additional large vessel occlusion or significant stenosis within the intracranial circulation. 2 mm infundibulum versus aneurysm seen at the right posterior commuting artery origin. This critical result was discussed with on 09/19/2022 7:50 PM, and it was ascertained that the content and urgency of the report was understood at the time of direct communication. Brain MRI 09/21/22 13:01 IMPRESSION: - There is a acute infarct within the right RESIDENTIAL TECH territory involving a significant portion of the right occipital lobe as well as portions of the mesial right temporal lobe and the right thalamus. Cytotoxic edema results in local cerebral sulcal effacement without midline shift. There is no hemorrhagic transformation. - There is chronic microangiopathy and there is a chronic left MCA territory infarct. Discharge Plan Discharge Anticipated Discharge Date/Time: 09/22/22 12:32 Patient Disposition: Xfer [facility] Discharge Diagnosis: Acute stroke Referrals: Ariana Wilson MD [Primary Care Provider] - 1 Week Discharge Medications: New clopidogrel 75 mg Tablet 75 mg PO DAILY Qty: 30 0RF rosuvastatin 20 mg tablet 20 mg PO DAILY Qty: 30 0RF Continued Papaya Enzyme Tablet 1 tab PO TID Rx Instructions: administer with meals valsartan 80 mg tablet 1 tab PO BID flaxseed oil 1,000 mg Capsule 1,000 mg PO DAILY Rx Instructions: administer with a meal turmeric 400 mg Capsule 400 mg PO DAILY aspirin 81 mg tablet,delayed release (DR/EC) 1 tab PO DAILY levothyroxine 100 mcg tablet 1 tab PO QAM menthol-zinc oxide [Calmoseptine] 0.44-20.6 % ointment 1 ea topical BID PRN (Reason: Inflammation) escitalopram oxalate 5 mg tablet 10 mg PO DAILY mirtazapine 7.5 mg Tablet 7.5 mg PO BEDTIME Discharge Orders: Discharge Order (Routine); Ordered 09/22/22 Ordered By: Inga Batista Diet: Low salt diet Activity on Discharge: As tolerated Stand Alone Forms: Patient Portal Discharge page Care Plan Goals: Read below Health Concerns: Read below Plan of Treatment: Read below Assessment: You were found to have a new stroke based on MRI findings with associated left sided numbness. Treated with IV tPA with good function preserved. evaluated by neurologist who recommended starting Plavix and statin. Start Plavix daily with Aspirin Start Rosuvostatin 20 mg daily Continue physical therapy
== END 2022-09-22 14:56 | DRG 63 ==
LOC: HO.ED 20:10 → HO.EDOVER 20:39 → HO.ICU 22:26 → HO.IMC 09-20 10:40 → HO.S3 09-21 01:44
PROVIDERS: Internal Medicine Pulmonary Disease; Admitting Provider Nurse Practitioner Family; Emergency Provider Emergency Medicine; PCP Internal Medicine; Visit Provider Student in an Organized Health Care Education/Training Program
DX: I63.531 Cerebral infarction due to unspecified occlusion or stenosis of right posterior cerebral artery (principal); R47.81 Slurred speech; R29.704 NIHSS score 4; I69.398 Other sequelae of cerebral infarction; F31.9 Bipolar disorder, unspecified; E03.9 Hypothyroidism, unspecified; Z79.82 Long term (current) use of aspirin; Z79.890 Hormone replacement therapy; Z79.899 Other long term (current) drug therapy
CPT/HCPCS: 36415; 70450; 70496; 70498; 70551; 71045; 80048; 80053; 80061; 82040; 82550; 82947; 83735; 84100; 84484; 85025; 85027; 85610; 85730; 92526; 92610; 93005; 93306; 97116; 97162; 97166; 97530; 97535; 99285; J1650; J2997; Q9967

== ENCOUNTER → 2022-09-19 17:54 | Outpatient (BNV) | payer MEDICARE, OTHER, SELFPAY | PROVIDERS: Admitting Provider Nurse Practitioner Family; Emergency Provider Emergency Medicine; Visit Provider Internal Medicine Cardiovascular Disease | DX: I63.9 Cerebral infarction, unspecified (principal) | CPT/HCPCS: 93010 ==

== ENCOUNTER 2022-09-19 20:20 | Outpatient (BNV) | payer MEDICARE, OTHER, SELFPAY | END 2022-09-21 07:00 | PROVIDERS: Admitting Provider Nurse Practitioner Family; Emergency Provider Emergency Medicine; PCP Internal Medicine; Visit Provider Internal Medicine Cardiovascular Disease | DX: I35.1 Nonrheumatic aortic (valve) insufficiency (principal) | CPT/HCPCS: 93306 ==

== ENCOUNTER → 2022-09-19 20:20 | Outpatient (BNV) | payer MEDICARE, OTHER, SELFPAY | PROVIDERS: Admitting Provider Nurse Practitioner Family; Emergency Provider Emergency Medicine; Visit Provider Student in an Organized Health Care Education/Training Program | DX: I63.531 Cerebral infarction due to unspecified occlusion or stenosis of right posterior cerebral artery (principal); E03.9 Hypothyroidism, unspecified | CPT/HCPCS: 99232; 99239; 99499 ==

== ENCOUNTER → 2022-09-19 20:20 | Outpatient (BNV) | payer MEDICARE, OTHER, SELFPAY | PROVIDERS: Admitting Provider Nurse Practitioner Family; Emergency Provider Emergency Medicine; Visit Provider Nurse Practitioner Family | DX: I63.9 Cerebral infarction, unspecified (principal) | CPT/HCPCS: 99222 ==

== ENCOUNTER → 2022-09-19 20:20 | Outpatient (BNV) | payer MEDICARE, OTHER, SELFPAY | PROVIDERS: Admitting Provider Nurse Practitioner Family; Emergency Provider Emergency Medicine; Visit Provider Internal Medicine Pulmonary Disease | DX: I69.354 Hemiplegia and hemiparesis following cerebral infarction affecting left non-dominant side (principal); E03.9 Hypothyroidism, unspecified; I10 Essential (primary) hypertension; F31.9 Bipolar disorder, unspecified | CPT/HCPCS: 99232 ==

== ENCOUNTER → 2023-07-26 08:30 | Outpatient (REF) | payer MEDICARE, OTHER, SELFPAY ==
--- NOTE | 2023-07-26 08:38 | ECG_ITS ---
Test Reason : QTC CHECK Blood Pressure : / mmHG Vent. Rate : 065 BPM Atrial Rate : 065 BPM P-R Int : 166 ms QRS Dur : 088 ms QT Int : 418 ms P-R-T Axes : -08 -01 037 degrees QTc Int : 434 ms Normal sinus rhythm Normal ECG When compared with ECG of 19-SEP-2022 18:18, No significant change was found Referred By: Khoi Christiansen Electronically Signed By:CHACORTA BARKER MD
== END ==
LOC: HO.CARD 08:30
PROVIDERS: Absent Provider Internal Medicine; PCP Internal Medicine; Visit Provider Psychiatry & Neurology Child & Adolescent Psychiatry
DX: Z13.6 Encounter for screening for cardiovascular disorders (principal)
CPT/HCPCS: 93005

== ENCOUNTER → 2023-07-26 08:38 | Outpatient (BNV) | payer MEDICARE, OTHER, SELFPAY | PROVIDERS: Absent Provider Internal Medicine; PCP Internal Medicine; Visit Provider Internal Medicine Cardiovascular Disease | DX: I45.81 Long QT syndrome (principal) | CPT/HCPCS: 93010 ==